=== PATIENT | male | born 1960 | race Caucasian/White ===

== ENCOUNTER 2020-07-30 13:08 | Inpatient (IN) | payer MEDICAID, OTHER ==
[~2020-07-30] VITALS: Ht 177.8 cm; Wt 77.1 kg
[2020-07-30 15:08] LABS: MEAN CORPUSCULAR HGB CONC 30.9 g/dL (33.2-36.2); MEAN PLATELET VOLUME 8.1 fL (7.4-10.4); PLATELET COUNT 229 x10^3/uL (130-400); RED BLOOD COUNT 4.01 x10^6/uL (4.38-5.82); RED CELL DISTRIBUTION WIDTH 16.3 % (9.4-14.8)
[2020-07-30 15:15] LABS: ALANINE AMINOTRANSFERASE 17 U/L (12-78); ALBUMIN 2.4 g/dL (3.4-5.0); ANION GAP 3 mmol/L (5-15); CALCIUM 8.2 mg/dL (8.5-10.1); CHLORIDE 104 mmol/L (98-107); CREATININE 1.18 mg/dL (0.7-1.3)
--- NOTE | 2020-07-30 15:15 | NUR ---
Joe patton in [facility] - 07/30/20 at 1540 by ERIC WATER MAINTENANCE SUPERVISOR: PT TO ROOM VIA WHEELCHAIR AT THIS TIME
[2020-07-30 15:20] LABS: ALKALINE PHOSPHATASE 115 U/L (45-117); BILIRUBIN,TOTAL 0.3 mg/dL (0.2-1.0)
--- NOTE | 2020-07-30 15:41 | NUR ---
WIRE BOUND BOX MACHINE HELPER: PT TO ROOM VIA WHEELCHAIR AT THIS TIME
[2020-07-30 15:46] LABS: MD YES
[2020-07-30 15:48] LABS: <PLATELET ESTIMATE> ADEQUATE; LYMPH#(MANUAL) 0.75 x10^3/uL (1-3.4); LYMPHS% (MANUAL) 10 % (22-44); MONOS#(MANUAL) 0.08 x10^3/uL (0.3-2.7); MONOS% (MANUAL) 1 % (2-9); SEG#(MANUAL) 6.68 x10^3/uL (1.8-6.8); SEGS% (MANUAL) 89 % (42-75)
[2020-07-30 15:49] LABS: <PLT MORPHOLOGY> NORMAL PLT MORPH; ANISOCYTOSIS 1+; MICROCYTOSIS 1+
[2020-07-30 15:50] LABS: HYPOCHROMIA 1+
--- NOTE | 2020-07-30 15:50 | NUR ---
REYNA RN: PT HELPED TO THE BED. PT REFUSING TO LAY FLAT AND PUT A GOWN. PRIMARY RN, GARDENIA WEBB.
[2020-07-30 15:52] LABS: STOMATOCYTES 1+
--- NOTE | 2020-07-30 16:12 | NUR ---
PT TO RADIOLOGY
--- NOTE | 2020-07-30 16:45 | NUR ---
DR MENDOZA AT BEDSIDE TO EVAL PT Addendum: 07/30/20 at 1717 by SCOTT C-COLLAR REMOVED BY DR MENDOZA.
[2020-07-30] MEDS ORDERED: FUROSEMIDE 40 MG/4 ML IV ONE (17:00)
--- NOTE | 2020-07-30 17:25 | NUR ---
PT IS POOR HISTORIAN, HARD TO FOCUS. UNABLE TO GET MED REC AND COMPLETE HISTORY.
[2020-07-30] MEDS ORDERED: FUROSEMIDE 40 MG/4 ML ONE (18:02)
[2020-07-30] MEDS: AMPICILLIN/SULBACTAM 3 GM in SODIUM CHLORIDE 0.9% 100 ML IV ONE ×2 (18:08→18:26)
--- NOTE | 2020-07-30 18:09 | NUR ---
IV abx not hung, blood cultures not drawn, logged in computer, no pink armband on pt. pt refused lamas cath, Deshawn JOSEPH ([facility]) notified. pt used urinal, 500mls output.
--- NOTE | 2020-07-30 18:22 | NUR ---
REPORT GIVEN TO JUANA TORRES
[2020-07-30] MEDS ORDERED: VANCOMYCIN PER PHARMACY MC PRN (18:30)
[2020-07-30] MEDS ORDERED: POLYETHYLENE GLYCOL 17 GM PACKET PO PRN (18:30)
[2020-07-30] MEDS ORDERED: ONDANSETRON ODT 4 MG PO PRN (18:30)
[2020-07-30] MEDS ORDERED: BISACODYL 10 MG SUPP PR PRN (18:30)
[2020-07-30 18:52] LABS: HCT (SEDRATE) 33.7 % (39.2-51.8)
[2020-07-30] MEDS ORDERED: PHARMACOKINETIC MONITORING MC PRN (19:30)
[2020-07-30] MEDS ORDERED: PHARMACOKINETIC CONSULTATION MC ONE (19:30)
[2020-07-30 20:00] VITALS: BP 150/82
[2020-07-30] MEDS ORDERED: VANCOMYCIN 2,400 MG in SODIUM CHLORIDE 0.9% 500 ML IV ONE (20:00)
[2020-07-30] MEDS: SODIUM CHLORIDE FLUSH 10ML SYR IVF SCH (20:36)
[2020-07-30] MEDS: HEPARIN 5,000 UNITS/ML, 1ML SQ SCH (20:36)
[2020-07-30] MEDS: morphine SULFATE 10 MG/ML, 1ML IVPush PRN (20:58)
[2020-07-30] MEDS: INSULIN LISPRO 100 UNITS/ML, PEN SQ-INSULIN SCH (22:19)
[2020-07-31] MEDS: AMPICILLIN/SULBACTAM 3 GM in SODIUM CHLORIDE 0.9% 100 ML IV SCH ×4 (00:49→18:30)
[2020-07-31 01:01] VITALS: BP 140/79
[2020-07-31] MEDS: HEPARIN 5,000 UNITS/ML, 1ML SQ SCH ×3 (04:30→20:44)
[2020-07-31 05:44] LABS: BASOPHILS % (AUTO) 0 % (0-1); EOSINOPHILS % (AUTO) 1 % (1-7); LYMPHOCYTES % (AUTO) 9 % (22-44); MEAN CORPUSCULAR HEMOGLOBIN 26.4 pg (27.5-34.5); MEAN CORPUSCULAR HGB CONC 31.8 g/dL (33.2-36.2); MONOCYTES % (AUTO) 4 % (2-9); NEUTROPHILS % (AUTO) 86 % (42-75); PLATELET COUNT 197 x10^3/uL (130-400); RED BLOOD COUNT 3.51 x10^6/uL (4.38-5.82); RED CELL DISTRIBUTION WIDTH 16.2 % (9.4-14.8)
[2020-07-31 05:56] LABS: ANION GAP 5 mmol/L (5-15); CALCIUM 7.7 mg/dL (8.5-10.1); CHLORIDE 105 mmol/L (98-107); CREATININE 1.07 mg/dL (0.7-1.3)
[2020-07-31 07:19] LABS: MD NO
[2020-07-31] MEDS: INSULIN LISPRO 100 UNITS/ML, PEN SQ-INSULIN SCH ×4 (07:25→20:43)
[2020-07-31] MEDS: FUROSEMIDE 40 MG/4 ML IV SCH ×2 (07:28→18:30)
[2020-07-31] MEDS ORDERED: VANCOMYCIN 2,000 MG in SODIUM CHLORIDE 0.9% 500 ML IV SCH ×2 (08:00→14:30)
[2020-07-31 08:25] VITALS: BP 102/70
[2020-07-31] MEDS: SODIUM CHLORIDE FLUSH 10ML SYR IVF SCH ×2 (09:36→20:44)
[2020-07-31] MEDS: SENNA/DOCUSATE TABLET PO SCH (09:36)
[2020-07-31] MEDS: METHADONE 10 MG TABLET PO SCH (09:39)
[2020-07-31] MEDS: INSULIN GLARGINE 100 UNITS/ML, PEN SQ-INSULIN SCH (10:35)
[2020-07-31] MEDS ORDERED: GADOTERATE 10 MMOL/20ML SYR ONE (11:29)
[2020-07-31] MEDS ORDERED: DEXTROSE 4 GM TAB.CHEW PO PRN (12:30)
[2020-07-31] MEDS ORDERED: DEXTROSE 50%, 50ML SYRINGE IVPush PRN (12:30)
[2020-07-31] MEDS: CHOLECALCIFEROL 5,000u TAB PO SCH (12:30)
[2020-07-31] MEDS ORDERED: GLUCAGON 1 MG IM PRN (12:30)
[2020-07-31] MEDS: ZINC SULFATE 220 MG CAPSULE PO SCH (12:32)
[2020-07-31 15:59] VITALS: BP 113/83
[2020-07-31 20:20] VITALS: BP 110/71
[2020-07-31] MEDS: ASCORBIC ACID 250 MG TAB PO SCH (20:44)
[2020-07-31] MEDS ORDERED: LORazepam 0.5MG TABLET ONE (22:54)
[2020-07-31] MEDS ORDERED: LORazepam 0.5MG TABLET PO ONE (23:00)
[2020-08-01] MEDS: AMPICILLIN/SULBACTAM 3 GM in SODIUM CHLORIDE 0.9% 100 ML IV SCH ×3 (00:30→12:30)
[2020-08-01 02:21] LABS: AMPHETAMINE SCREEN, URINE Positive (Negative); BARBITURATE SCREEN, URINE Negative (Negative); BENZODIAZEPINE SCREEN, URINE Negative (Negative); CANNABINOID SCREEN, URINE Negative (Negative); COCAINE SCREEN, URINE Negative (Negative); METHADONE SCREEN, URINE Positive (Negative); OPIATE SCREEN, URINE Positive (Negative)
[2020-08-01] MEDS: HEPARIN 5,000 UNITS/ML, 1ML SQ SCH ×3 (03:44→20:19)
[2020-08-01] MEDS: FUROSEMIDE 40 MG/4 ML IV SCH ×4 (05:09→20:19)
[2020-08-01 07:57] LABS: BASOPHILS % (AUTO) 1 % (0-1); EOSINOPHILS % (AUTO) 1 % (1-7); LYMPHOCYTES % (AUTO) 9 % (22-44); MEAN CORPUSCULAR HEMOGLOBIN 26.4 pg (27.5-34.5); MEAN CORPUSCULAR HGB CONC 31.8 g/dL (33.2-36.2); MEAN PLATELET VOLUME 7.8 fL (7.4-10.4); MONOCYTES % (AUTO) 8 % (2-9); NEUTROPHILS % (AUTO) 82 % (42-75); PLATELET COUNT 183 x10^3/uL (130-400); RED BLOOD COUNT 3.51 x10^6/uL (4.38-5.82); RED CELL DISTRIBUTION WIDTH 16.1 % (9.4-14.8)
[2020-08-01 08:02] LABS: ALBUMIN 2.2 g/dL (3.4-5.0); ANION GAP 5 mmol/L (5-15); CALCIUM 8.1 mg/dL (8.5-10.1); CHLORIDE 104 mmol/L (98-107)
[2020-08-01 08:10] LABS: ALANINE AMINOTRANSFERASE 21 U/L (12-78); ALKALINE PHOSPHATASE 208 U/L (45-117); BILIRUBIN,TOTAL 0.4 mg/dL (0.2-1.0); CREATININE 1.07 mg/dL (0.7-1.3); TOTAL PROTEIN 7.4 g/dL (6.4-8.2)
[2020-08-01 08:15] LABS: MD NO
[2020-08-01 08:27] VITALS: BP 118/82
[2020-08-01] MEDS: SODIUM CHLORIDE FLUSH 10ML SYR IVF SCH ×2 (08:30→20:20)
[2020-08-01] MEDS: ZINC SULFATE 220 MG CAPSULE PO SCH (08:31)
[2020-08-01] MEDS: ASCORBIC ACID 250 MG TAB PO SCH ×2 (08:31→20:21)
[2020-08-01] MEDS: SENNA/DOCUSATE TABLET PO SCH (08:31)
[2020-08-01] MEDS: METHADONE 10 MG TABLET PO SCH (08:31)
[2020-08-01] MEDS: CHOLECALCIFEROL 5,000u TAB PO SCH (08:31)
[2020-08-01] MEDS: INSULIN LISPRO 100 UNITS/ML, PEN SQ-INSULIN SCH ×4 (08:34→21:00)
[2020-08-01] MEDS: INSULIN GLARGINE 100 UNITS/ML, PEN SQ-INSULIN SCH (08:35)
[2020-08-01] MEDS: VANCOMYCIN 2,000 MG in SODIUM CHLORIDE 0.9% 500 ML IV SCH (08:41)
[2020-08-01 12:21] VITALS: BP 118/72
[2020-08-01] MEDS: LISINOPRIL 5 MG TABLET PO SCH (12:29)
[2020-08-01] MEDS: CARVEDILOL 3.125 MG TABLET PO SCH ×3 (12:29→20:23)
[2020-08-01 13:24] LABS: HCT (SEDRATE) 29.2 % (39.2-51.8)
[2020-08-01] MEDS ORDERED: LIDOCAINE 1%, 10ML ONE ×2 (14:39→15:31)
[2020-08-01] MEDS ORDERED: GADOTERATE 10 MMOL/20ML SYR ONE (15:13)
[2020-08-01] MEDS: SPIRONOLACTONE 25 MG TABLET PO SCH (16:00)
[2020-08-01 18:00] VITALS: BP 103/74
[2020-08-01] MEDS: PIPERACILLIN/TAZO/PMX 3.375GM 50 ML IV SCH ×3 (18:12→20:22)
[2020-08-01 20:20] VITALS: BP 101/66
[2020-08-02 02:33] LABS: BASOPHILS % (AUTO) 0 % (0-1); EOSINOPHILS % (AUTO) 2 % (1-7); LYMPHOCYTES % (AUTO) 14 % (22-44); MEAN CORPUSCULAR HEMOGLOBIN 25.8 pg (27.5-34.5); MEAN CORPUSCULAR HGB CONC 31.4 g/dL (33.2-36.2); MONOCYTES % (AUTO) 7 % (2-9); NEUTROPHILS % (AUTO) 77 % (42-75); PLATELET COUNT 192 x10^3/uL (130-400); RED BLOOD COUNT 3.46 x10^6/uL (4.38-5.82); RED CELL DISTRIBUTION WIDTH 16.5 % (9.4-14.8)
[2020-08-02 02:35] LABS: MD NO
[2020-08-02] MEDS: VANCOMYCIN 2,000 MG in SODIUM CHLORIDE 0.9% 500 ML IV SCH (02:36)
[2020-08-02 02:38] LABS: ALANINE AMINOTRANSFERASE 17 U/L (12-78); ANION GAP 5 mmol/L (5-15); CHLORIDE 105 mmol/L (98-107); CREATININE 1.03 mg/dL (0.7-1.3)
[2020-08-02 02:40] LABS: ALKALINE PHOSPHATASE 164 U/L (45-117); BILIRUBIN,TOTAL 0.3 mg/dL (0.2-1.0); TOTAL PROTEIN 6.9 g/dL (6.4-8.2)
[2020-08-02 02:45] VITALS: BP 116/70
[2020-08-02 04:05] VITALS: BP 101/66
[2020-08-02] MEDS: PIPERACILLIN/TAZO/PMX 3.375GM 50 ML IV SCH ×5 (04:30→22:35)
[2020-08-02] MEDS: HEPARIN 5,000 UNITS/ML, 1ML SQ SCH ×3 (04:48→22:36)
[2020-08-02] MEDS: CARVEDILOL 3.125 MG TABLET PO SCH ×2 (06:00→09:09)
[2020-08-02 06:38] VITALS: BP 121/78
[2020-08-02] MEDS ORDERED: METHADONE 5 MG TABLET ONE (08:33)
[2020-08-02] MEDS: METHADONE 10 MG TABLET PO SCH (08:48)
[2020-08-02] MEDS: INSULIN LISPRO 100 UNITS/ML, PEN SQ-INSULIN SCH ×4 (09:08→21:55)
[2020-08-02] MEDS: ASCORBIC ACID 250 MG TAB PO SCH ×2 (09:12→22:36)
[2020-08-02] MEDS: ZINC SULFATE 220 MG CAPSULE PO SCH (09:12)
[2020-08-02] MEDS: FUROSEMIDE 40 MG/4 ML IV SCH ×2 (09:12→17:46)
[2020-08-02] MEDS: CHOLECALCIFEROL 5,000u TAB PO SCH (09:13)
[2020-08-02] MEDS: LISINOPRIL 5 MG TABLET PO SCH (09:13)
[2020-08-02] MEDS: SENNA/DOCUSATE TABLET PO SCH (09:14)
[2020-08-02] MEDS: SPIRONOLACTONE 25 MG TABLET PO SCH (09:14)
[2020-08-02] MEDS: INSULIN GLARGINE 100 UNITS/ML, PEN SQ-INSULIN SCH (09:16)
[2020-08-02] MEDS: SODIUM CHLORIDE FLUSH 10ML SYR IVF SCH ×2 (09:16→21:53)
[2020-08-02 14:19] VITALS: BP 96/67
[2020-08-02 21:30] VITALS: BP 109/73
[2020-08-03] VITALS (7 sets, daily range): BP systolic 95–148; BP diastolic 57–84
[2020-08-03] MEDS ORDERED: LORazepam 1MG TABLET PO ONE (01:00)
[2020-08-03] MEDS ORDERED: VANCOMYCIN 2,000 MG in SODIUM CHLORIDE 0.9% 500 ML IV SCH (02:00)
[2020-08-03] MEDS: PIPERACILLIN/TAZO/PMX 3.375GM 50 ML IV SCH ×4 (04:34→23:10)
[2020-08-03] MEDS: HEPARIN 5,000 UNITS/ML, 1ML SQ SCH ×3 (04:35→20:18)
[2020-08-03 05:48] LABS: BASOPHILS % (AUTO) 0 % (0-1); EOSINOPHILS % (AUTO) 2 % (1-7); LYMPHOCYTES % (AUTO) 18 % (22-44); MEAN CORPUSCULAR HEMOGLOBIN 26.3 pg (27.5-34.5); MEAN PLATELET VOLUME 7.9 fL (7.4-10.4); MONOCYTES % (AUTO) 12 % (2-9); NEUTROPHILS % (AUTO) 68 % (42-75); PLATELET COUNT 201 x10^3/uL (130-400); RED CELL DISTRIBUTION WIDTH 16.3 % (9.4-14.8)
[2020-08-03 05:53] LABS: MD NO
[2020-08-03] MEDS: CARVEDILOL 3.125 MG TABLET PO SCH ×2 (05:55→16:54)
[2020-08-03 06:04] LABS: CHLORIDE 104 mmol/L (98-107)
[2020-08-03 06:08] LABS: ANION GAP 3 mmol/L (5-15); CALCIUM 7.7 mg/dL (8.5-10.1)
[2020-08-03] MEDS: METHADONE 10 MG TABLET PO SCH (07:50)
[2020-08-03] MEDS: FUROSEMIDE 40 MG/4 ML IV SCH ×2 (08:50→16:54)
[2020-08-03] MEDS: SPIRONOLACTONE 25 MG TABLET PO SCH (08:50)
[2020-08-03] MEDS: SENNA/DOCUSATE TABLET PO SCH (08:55)
[2020-08-03] MEDS: ASCORBIC ACID 250 MG TAB PO SCH ×2 (08:55→20:18)
[2020-08-03] MEDS: CHOLECALCIFEROL 5,000u TAB PO SCH (08:55)
[2020-08-03] MEDS: ZINC SULFATE 220 MG CAPSULE PO SCH (08:55)
[2020-08-03] MEDS: LISINOPRIL 5 MG TABLET PO SCH (08:55)
[2020-08-03] MEDS: INSULIN LISPRO 100 UNITS/ML, PEN SQ-INSULIN SCH ×4 (09:00→20:26)
[2020-08-03] MEDS: SODIUM CHLORIDE FLUSH 10ML SYR IVF SCH ×2 (09:01→20:18)
[2020-08-03] MEDS: INSULIN GLARGINE 100 UNITS/ML, PEN SQ-INSULIN SCH (10:19)
[2020-08-04] MEDS: HEPARIN 5,000 UNITS/ML, 1ML SQ SCH ×3 (03:30→19:54)
[2020-08-04] MEDS: PIPERACILLIN/TAZO/PMX 3.375GM 50 ML IV SCH ×3 (05:07→17:17)
[2020-08-04] MEDS: CARVEDILOL 3.125 MG TABLET PO SCH ×2 (05:55→17:17)
[2020-08-04 05:59] LABS: BASOPHILS % (AUTO) 1 % (0-1); EOSINOPHILS % (AUTO) 2 % (1-7); LYMPHOCYTES % (AUTO) 21 % (22-44); MEAN CORPUSCULAR HEMOGLOBIN 25.9 pg (27.5-34.5); MEAN CORPUSCULAR HGB CONC 31.2 g/dL (33.2-36.2); MEAN PLATELET VOLUME 7.9 fL (7.4-10.4); MONOCYTES % (AUTO) 11 % (2-9); NEUTROPHILS % (AUTO) 65 % (42-75); PLATELET COUNT 247 x10^3/uL (130-400); RED BLOOD COUNT 3.59 x10^6/uL (4.38-5.82); RED CELL DISTRIBUTION WIDTH 16.4 % (9.4-14.8)
[2020-08-04 06:00] LABS: MD NO
[2020-08-04 06:15] LABS: CALCIUM 7.7 mg/dL (8.5-10.1); CHLORIDE 100 mmol/L (98-107)
[2020-08-04 06:19] LABS: ANION GAP 3 mmol/L (5-15); CREATININE 0.95 mg/dL (0.7-1.3)
[2020-08-04 07:10] VITALS: BP 106/67
[2020-08-04] MEDS: INSULIN LISPRO 100 UNITS/ML, PEN SQ-INSULIN SCH ×4 (07:44→21:33)
[2020-08-04] MEDS: INSULIN GLARGINE 100 UNITS/ML, PEN SQ-INSULIN SCH (07:45)
[2020-08-04] MEDS: FUROSEMIDE 40 MG/4 ML IV SCH ×2 (07:45→17:17)
[2020-08-04] MEDS: METHADONE 10 MG TABLET PO SCH (07:45)
[2020-08-04] MEDS: SPIRONOLACTONE 25 MG TABLET PO SCH (07:46)
[2020-08-04] MEDS: ZINC SULFATE 220 MG CAPSULE PO SCH (07:46)
[2020-08-04] MEDS: ASCORBIC ACID 250 MG TAB PO SCH ×2 (07:46→21:32)
[2020-08-04] MEDS: CHOLECALCIFEROL 5,000u TAB PO SCH (07:46)
[2020-08-04] MEDS: LISINOPRIL 5 MG TABLET PO SCH (07:46)
[2020-08-04] MEDS: SODIUM CHLORIDE FLUSH 10ML SYR IVF SCH ×2 (07:48→19:57)
[2020-08-04] MEDS: SENNA/DOCUSATE TABLET PO SCH (07:51)
[2020-08-04 08:11] LABS: CHOL/HDL RATIO 3.3; LDL/HDL RATIO 1.8 (0.5-3.0)
[2020-08-04 13:14] VITALS: BP 117/80
[2020-08-04 18:35] VITALS: BP 112/77
[2020-08-04] MEDS ORDERED: INSULIN LISPRO 100 UNIT/ML, 3ML VIAL SQ-INSULIN ONE (20:00)
[2020-08-04 22:53] LABS: PH, VENOUS 7.429 pH (7.320-7.420)
[2020-08-04 23:03] LABS: ANION GAP 1 mmol/L (5-15); CALCIUM 7.6 mg/dL (8.5-10.1); CHLORIDE 98 mmol/L (98-107); CREATININE 1.12 mg/dL (0.7-1.3)
[2020-08-04 23:31] LABS: ACETONE, SERUM Negative (Negative)
[2020-08-04] MEDS: PIPERACILLIN/TAZO 3.375 GM in SODIUM CHLORIDE 0.9% 50 ML IV SCH (23:31)
[2020-08-04 23:56] VITALS: BP 100/56
[2020-08-05] VITALS (7 sets, daily range): BP systolic 93–117; BP diastolic 58–72
[2020-08-05] MEDS: HEPARIN 5,000 UNITS/ML, 1ML SQ SCH ×3 (03:46→20:02)
[2020-08-05] MEDS: ACETAMINOPHEN 325 MG TABLET PO PRN (03:46)
[2020-08-05] MEDS: PIPERACILLIN/TAZO 3.375 GM in SODIUM CHLORIDE 0.9% 50 ML IV SCH ×4 (05:37→23:06)
[2020-08-05] MEDS: CARVEDILOL 3.125 MG TABLET PO SCH ×2 (05:38→17:23)
[2020-08-05] MEDS: morphine SULFATE 10 MG/ML, 1ML IVPush PRN ×2 (08:42→17:23)
[2020-08-05] MEDS: ASCORBIC ACID 250 MG TAB PO SCH ×2 (08:43→20:02)
[2020-08-05] MEDS: METHADONE 10 MG TABLET PO SCH (08:43)
[2020-08-05] MEDS: SENNA/DOCUSATE TABLET PO SCH (08:43)
[2020-08-05] MEDS: LISINOPRIL 5 MG TABLET PO SCH (08:44)
[2020-08-05] MEDS: CHOLECALCIFEROL 5,000u TAB PO SCH (08:44)
[2020-08-05] MEDS: SPIRONOLACTONE 25 MG TABLET PO SCH (08:44)
[2020-08-05] MEDS: FUROSEMIDE 40 MG/4 ML IV SCH ×2 (08:44→17:23)
[2020-08-05] MEDS: SODIUM CHLORIDE FLUSH 10ML SYR IVF SCH ×2 (08:45→20:05)
[2020-08-05] MEDS: INSULIN LISPRO 100 UNITS/ML, PEN SQ-INSULIN SCH ×4 (08:47→20:04)
[2020-08-05] MEDS: INSULIN GLARGINE 100 UNITS/ML, PEN SQ-INSULIN SCH (08:47)
[2020-08-05] MEDS: ZINC SULFATE 220 MG CAPSULE PO SCH (08:53)
[2020-08-05] MEDS ORDERED: INSULIN GLARGINE 100 UNITS/ML, PEN SQ-INSULIN SCH (21:00)
[2020-08-06 00:19] VITALS: BP 152/84
[2020-08-06] MEDS: morphine SULFATE 10 MG/ML, 1ML IVPush PRN ×2 (01:31→08:19)
[2020-08-06] MEDS: HEPARIN 5,000 UNITS/ML, 1ML SQ SCH ×3 (03:25→19:27)
[2020-08-06] MEDS: CARVEDILOL 3.125 MG TABLET PO SCH ×2 (05:23→17:31)
[2020-08-06] MEDS: PIPERACILLIN/TAZO 3.375 GM in SODIUM CHLORIDE 0.9% 50 ML IV SCH ×4 (05:23→20:17)
[2020-08-06 05:33] LABS: BASOPHILS % (AUTO) 2 % (0-1); EOSINOPHILS % (AUTO) 3 % (1-7); LYMPHOCYTES % (AUTO) 26 % (22-44); MEAN CORPUSCULAR HEMOGLOBIN 25.8 pg (27.5-34.5); MEAN CORPUSCULAR HGB CONC 31.4 g/dL (33.2-36.2); MEAN PLATELET VOLUME 7.6 fL (7.4-10.4); MONOCYTES % (AUTO) 10 % (2-9); NEUTROPHILS % (AUTO) 60 % (42-75); PLATELET COUNT 251 x10^3/uL (130-400); RED CELL DISTRIBUTION WIDTH 16.3 % (9.4-14.8)
[2020-08-06 05:39] LABS: MD NO
[2020-08-06 05:47] LABS: CHLORIDE 98 mmol/L (98-107)
[2020-08-06 06:11] LABS: ANION GAP 4 mmol/L (5-15); CALCIUM 7.8 mg/dL (8.5-10.1)
[2020-08-06 08:11] VITALS: BP 105/67
[2020-08-06] MEDS: INSULIN LISPRO 100 UNITS/ML, PEN SQ-INSULIN SCH ×4 (08:16→20:08)
[2020-08-06] MEDS: INSULIN GLARGINE 100 UNITS/ML, PEN SQ-INSULIN SCH ×2 (08:17→20:09)
[2020-08-06] MEDS: SENNA/DOCUSATE TABLET PO SCH (08:20)
[2020-08-06] MEDS: CHOLECALCIFEROL 5,000u TAB PO SCH (08:20)
[2020-08-06] MEDS: FUROSEMIDE 40 MG/4 ML IV SCH ×2 (08:20→17:32)
[2020-08-06] MEDS: ASCORBIC ACID 250 MG TAB PO SCH ×2 (08:20→19:27)
[2020-08-06] MEDS: SODIUM CHLORIDE FLUSH 10ML SYR IVF SCH ×2 (08:21→20:10)
[2020-08-06] MEDS: SPIRONOLACTONE 25 MG TABLET PO SCH (08:21)
[2020-08-06] MEDS: LISINOPRIL 5 MG TABLET PO SCH (08:21)
[2020-08-06] MEDS: ZINC SULFATE 220 MG CAPSULE PO SCH (08:22)
[2020-08-06] MEDS: METHADONE 10 MG TABLET PO SCH (09:25)
[2020-08-06 12:02] VITALS: BP 110/68
[2020-08-06 19:07] VITALS: BP 105/61
[2020-08-06] MEDS: ACETAMINOPHEN 325 MG TABLET PO PRN (19:27)
[2020-08-07 00:25] VITALS: BP 121/79
[2020-08-07] MEDS: morphine SULFATE 10 MG/ML, 1ML IVPush PRN ×4 (00:36→22:58)
[2020-08-07] MEDS: PIPERACILLIN/TAZO 3.375 GM in SODIUM CHLORIDE 0.9% 50 ML IV SCH ×5 (02:47→23:45)
[2020-08-07] MEDS: HEPARIN 5,000 UNITS/ML, 1ML SQ SCH ×3 (04:24→20:27)
[2020-08-07 06:30] VITALS: BP 116/76
[2020-08-07] MEDS: CARVEDILOL 3.125 MG TABLET PO SCH ×2 (07:35→18:13)
[2020-08-07] MEDS: INSULIN LISPRO 100 UNITS/ML, PEN SQ-INSULIN SCH ×4 (07:45→21:00)
[2020-08-07] MEDS: FUROSEMIDE 40 MG/4 ML IV SCH ×2 (07:47→18:13)
[2020-08-07] MEDS: LISINOPRIL 5 MG TABLET PO SCH (09:38)
[2020-08-07] MEDS: ASCORBIC ACID 250 MG TAB PO SCH ×2 (09:39→21:57)
[2020-08-07] MEDS: ZINC SULFATE 220 MG CAPSULE PO SCH (09:39)
[2020-08-07] MEDS: SENNA/DOCUSATE TABLET PO SCH (09:40)
[2020-08-07] MEDS: CHOLECALCIFEROL 5,000u TAB PO SCH (09:40)
[2020-08-07] MEDS: METHADONE 10 MG TABLET PO SCH (09:40)
[2020-08-07] MEDS: SPIRONOLACTONE 25 MG TABLET PO SCH (09:41)
[2020-08-07] MEDS: SODIUM CHLORIDE FLUSH 10ML SYR IVF SCH ×2 (09:41→21:57)
[2020-08-07] MEDS: INSULIN GLARGINE 100 UNITS/ML, PEN SQ-INSULIN SCH ×2 (09:44→21:58)
[2020-08-07 14:23] VITALS: BP 110/69
[2020-08-07 18:38] VITALS: BP 112/70
[2020-08-08] MEDS: PIPERACILLIN/TAZO 3.375 GM in DEXTROSE 5% 50 ML IV SCH ×4 (00:15→17:09)
[2020-08-08] MEDS ORDERED: PIPERACILLIN/TAZO/PMX 3.375GM 50 ML IV SCH (02:15)
[2020-08-08 02:20] VITALS: BP 115/74
[2020-08-08] MEDS: HEPARIN 5,000 UNITS/ML, 1ML SQ SCH ×3 (05:31→21:37)
[2020-08-08] MEDS: morphine SULFATE 10 MG/ML, 1ML IVPush PRN ×4 (05:58→23:13)
[2020-08-08 06:00] VITALS: BP 133/86
[2020-08-08] MEDS: CARVEDILOL 3.125 MG TABLET PO SCH ×2 (06:01→17:09)
[2020-08-08] MEDS: INSULIN LISPRO 100 UNITS/ML, PEN SQ-INSULIN SCH ×4 (07:00→21:38)
[2020-08-08] MEDS: INSULIN GLARGINE 100 UNITS/ML, PEN SQ-INSULIN SCH ×2 (08:24→21:39)
[2020-08-08 08:27] LABS: BASOPHILS % (AUTO) 1 % (0-1); EOSINOPHILS % (AUTO) 1 % (1-7); LYMPHOCYTES % (AUTO) 20 % (22-44); MEAN CORPUSCULAR HEMOGLOBIN 25.6 pg (27.5-34.5); MEAN CORPUSCULAR HGB CONC 31.3 g/dL (33.2-36.2); MEAN PLATELET VOLUME 7.3 fL (7.4-10.4); MONOCYTES % (AUTO) 9 % (2-9); NEUTROPHILS % (AUTO) 68 % (42-75); PLATELET COUNT 271 x10^3/uL (130-400); RED BLOOD COUNT 4.25 x10^6/uL (4.38-5.82); RED CELL DISTRIBUTION WIDTH 16.4 % (9.4-14.8)
[2020-08-08 08:30] LABS: MD NO
[2020-08-08] MEDS ORDERED: INSULIN GLARGINE 100 UNITS/ML, PEN SQ-INSULIN ONE (08:30)
[2020-08-08] MEDS: FUROSEMIDE 40 MG/4 ML IV SCH (08:33)
[2020-08-08] MEDS: SODIUM CHLORIDE FLUSH 10ML SYR IVF SCH ×2 (08:34→21:39)
[2020-08-08] MEDS: METHADONE 10 MG TABLET PO SCH (08:34)
[2020-08-08] MEDS: SENNA/DOCUSATE TABLET PO SCH (08:34)
[2020-08-08] MEDS: ASCORBIC ACID 250 MG TAB PO SCH ×2 (08:34→21:37)
[2020-08-08 08:35] LABS: ANION GAP 1 mmol/L (5-15); CALCIUM 8.3 mg/dL (8.5-10.1); CHLORIDE 95 mmol/L (98-107); CREATININE 1.01 mg/dL (0.7-1.3)
[2020-08-08] MEDS: LISINOPRIL 5 MG TABLET PO SCH (08:35)
[2020-08-08] MEDS: SPIRONOLACTONE 25 MG TABLET PO SCH (08:35)
[2020-08-08] MEDS: ZINC SULFATE 220 MG CAPSULE PO SCH (08:35)
[2020-08-08] MEDS: CHOLECALCIFEROL 5,000u TAB PO SCH (08:35)
[2020-08-08 12:44] VITALS: BP 144/93
[2020-08-08 20:29] VITALS: BP 121/80
[2020-08-09] MEDS: PIPERACILLIN/TAZO 3.375 GM in DEXTROSE 5% 50 ML IV SCH ×4 (00:04→17:54)
[2020-08-09 00:09] VITALS: BP 106/67
[2020-08-09] MEDS: HEPARIN 5,000 UNITS/ML, 1ML SQ SCH ×3 (04:08→20:53)
[2020-08-09] MEDS: morphine SULFATE 10 MG/ML, 1ML IVPush PRN ×3 (04:08→21:48)
[2020-08-09 05:46] VITALS: BP 117/82
[2020-08-09] MEDS: CARVEDILOL 3.125 MG TABLET PO SCH ×2 (06:00→17:39)
[2020-08-09 06:21] VITALS: BP 115/78
[2020-08-09] MEDS: INSULIN LISPRO 100 UNITS/ML, PEN SQ-INSULIN SCH ×4 (07:00→21:06)
[2020-08-09] MEDS: SPIRONOLACTONE 25 MG TABLET PO SCH (09:00)
[2020-08-09] MEDS: LISINOPRIL 5 MG TABLET PO SCH (09:00)
[2020-08-09] MEDS: SODIUM CHLORIDE FLUSH 10ML SYR IVF SCH ×2 (09:00→20:53)
[2020-08-09] MEDS: METHADONE 10 MG TABLET PO SCH (09:08)
[2020-08-09] MEDS: ASCORBIC ACID 250 MG TAB PO SCH ×2 (09:09→20:55)
[2020-08-09] MEDS: SENNA/DOCUSATE TABLET PO SCH (09:09)
[2020-08-09] MEDS: CHOLECALCIFEROL 5,000u TAB PO SCH (09:09)
[2020-08-09] MEDS: ZINC SULFATE 220 MG CAPSULE PO SCH (09:09)
[2020-08-09] MEDS: FUROSEMIDE 40 MG TABLET PO SCH (09:09)
[2020-08-09] MEDS: INSULIN GLARGINE 100 UNITS/ML, PEN SQ-INSULIN SCH ×2 (09:11→21:07)
[2020-08-09 12:48] VITALS: BP 125/78
[2020-08-09 19:19] VITALS: BP 129/86
[2020-08-10] MEDS: PIPERACILLIN/TAZO 3.375 GM in DEXTROSE 5% 50 ML IV SCH ×5 (00:20→23:41)
[2020-08-10 01:15] VITALS: BP 116/76
[2020-08-10] MEDS: HEPARIN 5,000 UNITS/ML, 1ML SQ SCH ×3 (04:01→21:35)
[2020-08-10] MEDS: CARVEDILOL 3.125 MG TABLET PO SCH ×2 (06:00→17:40)
[2020-08-10 06:09] LABS: HCT (SEDRATE) 29.7 % (39.2-51.8)
[2020-08-10 06:12] LABS: BASOPHILS % (AUTO) 1 % (0-1); EOSINOPHILS % (AUTO) 3 % (1-7); LYMPHOCYTES % (AUTO) 33 % (22-44); MEAN CORPUSCULAR HEMOGLOBIN 25.6 pg (27.5-34.5); MEAN CORPUSCULAR HGB CONC 31.6 g/dL (33.2-36.2); MONOCYTES % (AUTO) 10 % (2-9); NEUTROPHILS % (AUTO) 53 % (42-75); PLATELET COUNT 327 x10^3/uL (130-400); RED CELL DISTRIBUTION WIDTH 16.7 % (9.4-14.8)
[2020-08-10 06:14] LABS: MD NO
[2020-08-10 06:19] LABS: ANION GAP 2 mmol/L (5-15); CALCIUM 8.5 mg/dL (8.5-10.1); CHLORIDE 99 mmol/L (98-107); CREATININE 0.93 mg/dL (0.7-1.3)
[2020-08-10] MEDS: morphine SULFATE 10 MG/ML, 1ML IVPush PRN ×3 (06:20→21:36)
[2020-08-10 06:42] VITALS: BP 111/66
[2020-08-10] MEDS: INSULIN LISPRO 100 UNITS/ML, PEN SQ-INSULIN SCH ×4 (07:00→21:44)
[2020-08-10] MEDS: ZINC SULFATE 220 MG CAPSULE PO SCH (08:42)
[2020-08-10] MEDS: SENNA/DOCUSATE TABLET PO SCH (08:42)
[2020-08-10] MEDS: METHADONE 10 MG TABLET PO SCH (08:42)
[2020-08-10] MEDS: FUROSEMIDE 40 MG TABLET PO SCH (08:43)
[2020-08-10] MEDS: CHOLECALCIFEROL 5,000u TAB PO SCH (08:43)
[2020-08-10] MEDS: ASCORBIC ACID 250 MG TAB PO SCH ×2 (08:43→21:35)
[2020-08-10] MEDS: SPIRONOLACTONE 25 MG TABLET PO SCH (08:43)
[2020-08-10] MEDS ORDERED: INSULIN GLARGINE 100 UNITS/ML, PEN SQ-INSULIN SCH (09:00)
[2020-08-10] MEDS: LISINOPRIL 5 MG TABLET PO SCH (09:00)
[2020-08-10] MEDS: SODIUM CHLORIDE FLUSH 10ML SYR IVF SCH ×2 (09:00→21:35)
[2020-08-10 12:22] VITALS: BP 122/78
[2020-08-10 20:00] VITALS: BP 117/74
[2020-08-10] MEDS: INSULIN GLARGINE 100 UNITS/ML, PEN SQ-INSULIN SCH (21:36)
[2020-08-11] MEDS: morphine SULFATE 10 MG/ML, 1ML IVPush PRN ×4 (00:53→19:46)
[2020-08-11 00:58] VITALS: BP 118/83
[2020-08-11] MEDS: PIPERACILLIN/TAZO 3.375 GM in DEXTROSE 5% 50 ML IV SCH ×3 (05:31→17:51)
[2020-08-11] MEDS: HEPARIN 5,000 UNITS/ML, 1ML SQ SCH ×3 (05:32→21:34)
[2020-08-11] MEDS: CARVEDILOL 3.125 MG TABLET PO SCH ×2 (05:36→17:52)
[2020-08-11] MEDS: INSULIN LISPRO 100 UNITS/ML, PEN SQ-INSULIN SCH ×4 (07:00→20:16)
[2020-08-11 07:09] VITALS: BP 105/75
[2020-08-11] MEDS: SODIUM CHLORIDE FLUSH 10ML SYR IVF SCH ×2 (08:03→20:18)
[2020-08-11] MEDS: CHOLECALCIFEROL 5,000u TAB PO SCH (08:03)
[2020-08-11] MEDS: ZINC SULFATE 220 MG CAPSULE PO SCH (08:04)
[2020-08-11] MEDS: METHADONE 10 MG TABLET PO SCH (08:04)
[2020-08-11] MEDS: FUROSEMIDE 40 MG TABLET PO SCH (08:04)
[2020-08-11] MEDS: SPIRONOLACTONE 25 MG TABLET PO SCH (08:05)
[2020-08-11] MEDS: SENNA/DOCUSATE TABLET PO SCH (08:05)
[2020-08-11] MEDS: ASCORBIC ACID 250 MG TAB PO SCH ×2 (08:05→20:09)
[2020-08-11] MEDS: LISINOPRIL 5 MG TABLET PO SCH (08:07)
[2020-08-11] MEDS ORDERED: INSULIN GLARGINE 100 UNITS/ML, PEN SQ-INSULIN SCH (09:00)
[2020-08-11 12:15] VITALS: BP 121/66
[2020-08-11 18:30] VITALS: BP 111/68
[2020-08-11] MEDS: INSULIN GLARGINE 100 UNITS/ML, PEN SQ-INSULIN SCH (20:16)
[2020-08-12] MEDS: PIPERACILLIN/TAZO 3.375 GM in DEXTROSE 5% 50 ML IV SCH ×4 (00:06→17:56)
[2020-08-12 00:32] VITALS: BP 112/66
[2020-08-12 05:03] LABS: BASOPHILS % (AUTO) 1 % (0-1); EOSINOPHILS % (AUTO) 2 % (1-7); LYMPHOCYTES % (AUTO) 29 % (22-44); MEAN CORPUSCULAR HEMOGLOBIN 25.4 pg (27.5-34.5); MEAN CORPUSCULAR HGB CONC 31.3 g/dL (33.2-36.2); MEAN PLATELET VOLUME 7.1 fL (7.4-10.4); MONOCYTES % (AUTO) 10 % (2-9); NEUTROPHILS % (AUTO) 58 % (42-75); PLATELET COUNT 336 x10^3/uL (130-400); RED BLOOD COUNT 3.78 x10^6/uL (4.38-5.82); RED CELL DISTRIBUTION WIDTH 16.3 % (9.4-14.8)
[2020-08-12 05:16] LABS: ANION GAP 1 mmol/L (5-15); CALCIUM 8.5 mg/dL (8.5-10.1); CHLORIDE 98 mmol/L (98-107)
[2020-08-12 05:19] LABS: CREATININE 1.17 mg/dL (0.7-1.3)
[2020-08-12] MEDS: HEPARIN 5,000 UNITS/ML, 1ML SQ SCH ×3 (05:31→21:09)
[2020-08-12] MEDS: morphine SULFATE 10 MG/ML, 1ML IVPush PRN ×3 (05:31→16:50)
[2020-08-12] MEDS: CARVEDILOL 3.125 MG TABLET PO SCH ×3 (05:32→16:54)
[2020-08-12 05:36] LABS: MD NO
[2020-08-12 06:50] VITALS: BP 103/71
[2020-08-12] MEDS: INSULIN LISPRO 100 UNITS/ML, PEN SQ-INSULIN SCH ×4 (07:00→21:10)
[2020-08-12] MEDS: SPIRONOLACTONE 25 MG TABLET PO SCH (09:00)
[2020-08-12] MEDS: SENNA/DOCUSATE TABLET PO SCH (09:00)
[2020-08-12] MEDS: LISINOPRIL 5 MG TABLET PO SCH (09:00)
[2020-08-12] MEDS: METHADONE 10 MG TABLET PO SCH (09:15)
[2020-08-12] MEDS: ASCORBIC ACID 250 MG TAB PO SCH ×2 (09:15→21:09)
[2020-08-12] MEDS: ZINC SULFATE 220 MG CAPSULE PO SCH (09:15)
[2020-08-12] MEDS: CHOLECALCIFEROL 5,000u TAB PO SCH (09:15)
[2020-08-12] MEDS: FUROSEMIDE 40 MG TABLET PO SCH (09:15)
[2020-08-12] MEDS: SODIUM CHLORIDE FLUSH 10ML SYR IVF SCH ×2 (09:16→21:00)
[2020-08-12 12:37] VITALS: BP 104/74
[2020-08-12 16:49] VITALS: BP 102/72
[2020-08-12 18:48] VITALS: BP 96/59
[2020-08-12] MEDS: INSULIN GLARGINE 100 UNITS/ML, PEN SQ-INSULIN SCH (21:12)
[2020-08-13 00:09] VITALS: BP 100/74
[2020-08-13] MEDS: PIPERACILLIN/TAZO 3.375 GM in DEXTROSE 5% 50 ML IV SCH ×4 (00:10→18:06)
[2020-08-13 00:13] VITALS: BP 117/72
[2020-08-13] MEDS: morphine SULFATE 10 MG/ML, 1ML IVPush PRN ×3 (00:22→22:18)
[2020-08-13 03:09] VITALS: BP 110/77
[2020-08-13] MEDS: HEPARIN 5,000 UNITS/ML, 1ML SQ SCH ×3 (05:15→22:05)
[2020-08-13] MEDS: CARVEDILOL 3.125 MG TABLET PO SCH ×2 (06:00→18:00)
[2020-08-13] MEDS: INSULIN LISPRO 100 UNITS/ML, PEN SQ-INSULIN SCH ×4 (07:49→22:04)
[2020-08-13] MEDS: SODIUM CHLORIDE FLUSH 10ML SYR IVF SCH ×2 (07:50→22:01)
[2020-08-13 08:34] VITALS: BP 109/69
[2020-08-13] MEDS: ZINC SULFATE 220 MG CAPSULE PO SCH (09:41)
[2020-08-13] MEDS: METHADONE 10 MG TABLET PO SCH (09:41)
[2020-08-13] MEDS: SENNA/DOCUSATE TABLET PO SCH (09:41)
[2020-08-13] MEDS: CHOLECALCIFEROL 5,000u TAB PO SCH (09:41)
[2020-08-13] MEDS: ASCORBIC ACID 250 MG TAB PO SCH ×2 (09:41→22:05)
[2020-08-13] MEDS: FUROSEMIDE 40 MG TABLET PO SCH (09:41)
[2020-08-13] MEDS: SPIRONOLACTONE 25 MG TABLET PO SCH ×2 (09:42→09:52)
[2020-08-13] MEDS: LISINOPRIL 5 MG TABLET PO SCH ×2 (09:43→09:46)
[2020-08-13 14:42] VITALS: BP 104/67
[2020-08-13 18:30] VITALS: BP 109/74
[2020-08-13] MEDS: INSULIN GLARGINE 100 UNITS/ML, PEN SQ-INSULIN SCH (22:04)
[2020-08-14] MEDS: PIPERACILLIN/TAZO 3.375 GM in DEXTROSE 5% 50 ML IV SCH ×4 (00:11→18:05)
[2020-08-14 00:32] VITALS: BP 99/64
[2020-08-14] MEDS: morphine SULFATE 10 MG/ML, 1ML IVPush PRN ×3 (02:46→23:05)
[2020-08-14] MEDS: HEPARIN 5,000 UNITS/ML, 1ML SQ SCH ×4 (05:30→21:52)
[2020-08-14] MEDS: CARVEDILOL 3.125 MG TABLET PO SCH ×2 (06:00→18:00)
[2020-08-14] MEDS: INSULIN LISPRO 100 UNITS/ML, PEN SQ-INSULIN SCH ×4 (07:20→21:54)
[2020-08-14] MEDS: ASCORBIC ACID 250 MG TAB PO SCH ×2 (08:23→21:52)
[2020-08-14] MEDS: ZINC SULFATE 220 MG CAPSULE PO SCH (08:23)
[2020-08-14] MEDS: CHOLECALCIFEROL 5,000u TAB PO SCH (08:23)
[2020-08-14] MEDS: METHADONE 10 MG TABLET PO SCH (08:23)
[2020-08-14] MEDS: SODIUM CHLORIDE FLUSH 10ML SYR IVF SCH ×2 (08:23→21:52)
[2020-08-14] MEDS: FUROSEMIDE 40 MG TABLET PO SCH (08:26)
[2020-08-14] MEDS: SENNA/DOCUSATE TABLET PO SCH (08:33)
[2020-08-14] MEDS: LISINOPRIL 5 MG TABLET PO SCH (08:33)
[2020-08-14] MEDS: SPIRONOLACTONE 25 MG TABLET PO SCH (08:33)
[2020-08-14 13:13] VITALS: BP 125/86
[2020-08-14 18:28] VITALS: BP 106/54
[2020-08-14] MEDS: INSULIN GLARGINE 100 UNITS/ML, PEN SQ-INSULIN SCH (21:53)
[2020-08-15] MEDS: PIPERACILLIN/TAZO 3.375 GM in DEXTROSE 5% 50 ML IV SCH ×4 (00:09→17:25)
[2020-08-15 00:27] VITALS: BP 102/59
[2020-08-15] MEDS: morphine SULFATE 10 MG/ML, 1ML IVPush PRN ×4 (03:13→20:12)
[2020-08-15] MEDS: HEPARIN 5,000 UNITS/ML, 1ML SQ SCH ×3 (05:22→20:19)
[2020-08-15] MEDS: CARVEDILOL 3.125 MG TABLET PO SCH ×2 (05:25→17:29)
[2020-08-15] MEDS: INSULIN LISPRO 100 UNITS/ML, PEN SQ-INSULIN SCH ×4 (07:00→21:00)
[2020-08-15 07:21] VITALS: BP 103/73
[2020-08-15] MEDS: SODIUM CHLORIDE FLUSH 10ML SYR IVF SCH ×2 (08:58→20:12)
[2020-08-15] MEDS: ASCORBIC ACID 250 MG TAB PO SCH ×2 (08:58→20:12)
[2020-08-15] MEDS: LISINOPRIL 5 MG TABLET PO SCH ×2 (08:58→09:00)
[2020-08-15] MEDS: CHOLECALCIFEROL 5,000u TAB PO SCH (08:58)
[2020-08-15] MEDS: FUROSEMIDE 40 MG TABLET PO SCH (08:58)
[2020-08-15] MEDS: SENNA/DOCUSATE TABLET PO SCH (08:59)
[2020-08-15] MEDS: METHADONE 10 MG TABLET PO SCH (08:59)
[2020-08-15] MEDS: SPIRONOLACTONE 25 MG TABLET PO SCH (08:59)
[2020-08-15] MEDS: ZINC SULFATE 220 MG CAPSULE PO SCH (09:02)
[2020-08-15 12:49] VITALS: BP 100/65
[2020-08-15 18:42] VITALS: BP 109/63
[2020-08-15] MEDS: INSULIN GLARGINE 100 UNITS/ML, PEN SQ-INSULIN SCH (21:31)
[2020-08-16] MEDS: PIPERACILLIN/TAZO 3.375 GM in DEXTROSE 5% 50 ML IV SCH ×4 (00:11→18:00)
[2020-08-16] MEDS: morphine SULFATE 10 MG/ML, 1ML IVPush PRN ×5 (00:11→18:11)
[2020-08-16 00:14] VITALS: BP 115/76
[2020-08-16] MEDS: HEPARIN 5,000 UNITS/ML, 1ML SQ SCH ×3 (03:34→20:37)
[2020-08-16] MEDS: CARVEDILOL 3.125 MG TABLET PO SCH ×2 (05:21→17:59)
[2020-08-16] MEDS: INSULIN LISPRO 100 UNITS/ML, PEN SQ-INSULIN SCH ×4 (07:41→20:42)
[2020-08-16 08:01] VITALS: BP 142/68
[2020-08-16] MEDS: SODIUM CHLORIDE FLUSH 10ML SYR IVF SCH ×2 (08:47→20:45)
[2020-08-16] MEDS: ASCORBIC ACID 250 MG TAB PO SCH ×2 (08:48→20:35)
[2020-08-16] MEDS: METHADONE 10 MG TABLET PO SCH (08:48)
[2020-08-16] MEDS: ZINC SULFATE 220 MG CAPSULE PO SCH (08:48)
[2020-08-16] MEDS: SPIRONOLACTONE 25 MG TABLET PO SCH (08:48)
[2020-08-16] MEDS: CHOLECALCIFEROL 5,000u TAB PO SCH (08:48)
[2020-08-16] MEDS: FUROSEMIDE 40 MG TABLET PO SCH (08:48)
[2020-08-16] MEDS: LISINOPRIL 5 MG TABLET PO SCH (08:49)
[2020-08-16] MEDS: SENNA/DOCUSATE TABLET PO SCH (08:49)
[2020-08-16 13:47] VITALS: BP 100/64
[2020-08-16 18:23] VITALS: BP 121/81
[2020-08-16] MEDS: INSULIN GLARGINE 100 UNITS/ML, PEN SQ-INSULIN SCH (20:42)
[2020-08-16] MEDS: MELATONIN 5 MG TABLET PO SCH ×2 (21:30→21:58)
[2020-08-17] MEDS: PIPERACILLIN/TAZO 3.375 GM in DEXTROSE 5% 50 ML IV SCH ×5 (00:47→23:53)
[2020-08-17 00:56] VITALS: BP 136/92
[2020-08-17] MEDS: morphine SULFATE 10 MG/ML, 1ML IVPush PRN ×3 (01:18→18:57)
[2020-08-17] MEDS: HEPARIN 5,000 UNITS/ML, 1ML SQ SCH (05:12)
[2020-08-17 05:14] LABS: HCT (SEDRATE) 29.6 % (39.2-51.8)
[2020-08-17 05:15] LABS: BASOPHILS % (AUTO) 1 % (0-1); EOSINOPHILS % (AUTO) 2 % (1-7); LYMPHOCYTES % (AUTO) 26 % (22-44); MEAN CORPUSCULAR HEMOGLOBIN 25.5 pg (27.5-34.5); MEAN CORPUSCULAR HGB CONC 31.5 g/dL (33.2-36.2); MEAN PLATELET VOLUME 7.1 fL (7.4-10.4); MONOCYTES % (AUTO) 11 % (2-9); NEUTROPHILS % (AUTO) 60 % (42-75); PLATELET COUNT 359 x10^3/uL (130-400); RED BLOOD COUNT 3.67 x10^6/uL (4.38-5.82); RED CELL DISTRIBUTION WIDTH 16.6 % (9.4-14.8)
[2020-08-17 05:16] LABS: MD NO
[2020-08-17 05:26] LABS: CHLORIDE 99 mmol/L (98-107)
[2020-08-17 05:34] LABS: ALANINE AMINOTRANSFERASE 32 U/L (12-78); ALBUMIN 2.3 g/dL (3.4-5.0); ALKALINE PHOSPHATASE 73 U/L (45-117); ANION GAP 3 mmol/L (5-15); BILIRUBIN,TOTAL 0.2 mg/dL (0.2-1.0); C-REACTIVE PROTEIN, QUANT 0.55 mg/dL (0.02-0.49); CALCIUM 8.6 mg/dL (8.5-10.1); CREATININE 1.01 mg/dL (0.7-1.3); TOTAL PROTEIN 7.8 g/dL (6.4-8.2)
[2020-08-17] MEDS: CARVEDILOL 3.125 MG TABLET PO SCH ×2 (05:48→17:21)
[2020-08-17 07:04] VITALS: BP 107/69
[2020-08-17] MEDS: INSULIN LISPRO 100 UNITS/ML, PEN SQ-INSULIN SCH ×4 (08:06→20:27)
[2020-08-17] MEDS: CHOLECALCIFEROL 5,000u TAB PO SCH (08:06)
[2020-08-17] MEDS: FUROSEMIDE 40 MG TABLET PO SCH (08:07)
[2020-08-17] MEDS: ASCORBIC ACID 250 MG TAB PO SCH ×2 (08:07→20:20)
[2020-08-17] MEDS: ZINC SULFATE 220 MG CAPSULE PO SCH (08:07)
[2020-08-17] MEDS: METHADONE 10 MG TABLET PO SCH (08:07)
[2020-08-17] MEDS: SPIRONOLACTONE 25 MG TABLET PO SCH (08:08)
[2020-08-17] MEDS: SENNA/DOCUSATE TABLET PO SCH (08:08)
[2020-08-17] MEDS: SODIUM CHLORIDE FLUSH 10ML SYR IVF SCH ×2 (08:08→20:21)
[2020-08-17] MEDS: LISINOPRIL 5 MG TABLET PO SCH (08:08)
[2020-08-17] MEDS: ENOXAPARIN 40 MG/0.4 ML SQ SCH (08:30)
[2020-08-17 12:57] VITALS: BP 108/72
[2020-08-17 19:59] VITALS: BP 129/86
[2020-08-17] MEDS: MELATONIN 5 MG TABLET PO SCH (20:21)
[2020-08-17] MEDS: INSULIN GLARGINE 100 UNITS/ML, PEN SQ-INSULIN SCH (20:28)
[2020-08-18 00:42] VITALS: BP 119/79
[2020-08-18] MEDS: morphine SULFATE 10 MG/ML, 1ML IVPush PRN ×2 (01:15→07:30)
[2020-08-18] MEDS: CARVEDILOL 3.125 MG TABLET PO SCH (05:07)
[2020-08-18 05:20] LABS: % IRON SATURATION 10 % (20-55); IRON LEVEL 46 mcg/dL (65-175); TOTAL IRON BINDING CAPACITY 457 mcg/dL (250-450)
[2020-08-18] MEDS: PIPERACILLIN/TAZO 3.375 GM in DEXTROSE 5% 50 ML IV SCH ×3 (05:45→17:17)
[2020-08-18] MEDS: INSULIN LISPRO 100 UNITS/ML, PEN SQ-INSULIN SCH ×4 (07:00→20:41)
[2020-08-18] MEDS: ASCORBIC ACID 250 MG TAB PO SCH ×2 (07:32→20:40)
[2020-08-18] MEDS: ZINC SULFATE 220 MG CAPSULE PO SCH (07:32)
[2020-08-18] MEDS: CHOLECALCIFEROL 5,000u TAB PO SCH (07:32)
[2020-08-18] MEDS: FUROSEMIDE 40 MG TABLET PO SCH (07:32)
[2020-08-18] MEDS: METHADONE 10 MG TABLET PO SCH (07:33)
[2020-08-18] MEDS: ENOXAPARIN 40 MG/0.4 ML SQ SCH (07:35)
[2020-08-18] MEDS: LISINOPRIL 5 MG TABLET PO SCH (07:35)
[2020-08-18] MEDS: SODIUM CHLORIDE FLUSH 10ML SYR IVF SCH ×2 (07:36→20:41)
[2020-08-18 07:38] VITALS: BP 108/68
[2020-08-18] MEDS ORDERED: MELATONIN 5 MG TABLET PO PRN (08:00)
[2020-08-18] MEDS ORDERED: SENNA/DOCUSATE TABLET PO PRN (08:00)
[2020-08-18 12:21] VITALS: BP 112/67
[2020-08-18] MEDS: ACETAMINOPHEN 325 MG TABLET PO PRN (19:44)
[2020-08-18 19:45] VITALS: BP 105/70
[2020-08-18] MEDS: INSULIN GLARGINE 100 UNITS/ML, PEN SQ-INSULIN SCH (20:41)
[2020-08-19] MEDS: PIPERACILLIN/TAZO 3.375 GM in DEXTROSE 5% 50 ML IV SCH ×4 (00:21→18:37)
[2020-08-19 00:24] VITALS: BP 146/98
[2020-08-19] MEDS: ACETAMINOPHEN 325 MG TABLET PO PRN ×2 (02:25→19:46)
[2020-08-19] MEDS: LISINOPRIL 5 MG TABLET PO SCH (07:54)
[2020-08-19] MEDS: ASCORBIC ACID 250 MG TAB PO SCH ×2 (08:01→21:16)
[2020-08-19] MEDS: INSULIN LISPRO 100 UNITS/ML, PEN SQ-INSULIN SCH ×4 (08:01→21:17)
[2020-08-19] MEDS: METHADONE 10 MG TABLET PO SCH (08:01)
[2020-08-19] MEDS: FUROSEMIDE 40 MG TABLET PO SCH (08:02)
[2020-08-19] MEDS: CHOLECALCIFEROL 5,000u TAB PO SCH (08:02)
[2020-08-19] MEDS: ZINC SULFATE 220 MG CAPSULE PO SCH (08:02)
[2020-08-19] MEDS: ENOXAPARIN 40 MG/0.4 ML SQ SCH (08:03)
[2020-08-19] MEDS: SODIUM CHLORIDE FLUSH 10ML SYR IVF SCH ×2 (08:05→21:17)
[2020-08-19 08:06] VITALS: BP 104/66
[2020-08-19 13:23] VITALS: BP 113/82
[2020-08-19 19:08] VITALS: BP 104/71
[2020-08-19] MEDS: INSULIN GLARGINE 100 UNITS/ML, PEN SQ-INSULIN SCH (21:17)
[2020-08-20 00:31] VITALS: BP 113/71
[2020-08-20] MEDS: PIPERACILLIN/TAZO 3.375 GM in DEXTROSE 5% 50 ML IV SCH ×4 (01:29→19:46)
[2020-08-20] MEDS: ACETAMINOPHEN 325 MG TABLET PO PRN ×2 (01:30→15:03)
[2020-08-20] MEDS: INSULIN LISPRO 100 UNITS/ML, PEN SQ-INSULIN SCH ×4 (07:00→20:02)
[2020-08-20 07:09] VITALS: BP 102/68
[2020-08-20] MEDS: ENOXAPARIN 40 MG/0.4 ML SQ SCH (07:29)
[2020-08-20] MEDS: SODIUM CHLORIDE FLUSH 10ML SYR IVF SCH ×2 (07:29→19:47)
[2020-08-20] MEDS: METHADONE 10 MG TABLET PO SCH (07:30)
[2020-08-20] MEDS: FUROSEMIDE 40 MG TABLET PO SCH (07:30)
[2020-08-20] MEDS: ZINC SULFATE 220 MG CAPSULE PO SCH (07:30)
[2020-08-20] MEDS: CHOLECALCIFEROL 5,000u TAB PO SCH (07:31)
[2020-08-20] MEDS: ASCORBIC ACID 250 MG TAB PO SCH ×2 (07:31→20:01)
[2020-08-20] MEDS: LISINOPRIL 5 MG TABLET PO SCH (07:31)
[2020-08-20 13:16] VITALS: BP 102/64
[2020-08-20] MEDS: INSULIN GLARGINE 100 UNITS/ML, PEN SQ-INSULIN SCH (20:01)
[2020-08-20 21:09] VITALS: BP 92/63
[2020-08-21 00:22] VITALS: BP 97/67
[2020-08-21] MEDS: PIPERACILLIN/TAZO 3.375 GM in DEXTROSE 5% 50 ML IV SCH ×4 (02:13→19:40)
[2020-08-21 06:25] VITALS: BP 100/65
[2020-08-21] MEDS: INSULIN LISPRO 100 UNITS/ML, PEN SQ-INSULIN SCH ×4 (07:00→19:52)
[2020-08-21] MEDS: FUROSEMIDE 40 MG TABLET PO SCH (08:27)
[2020-08-21] MEDS: ZINC SULFATE 220 MG CAPSULE PO SCH (08:27)
[2020-08-21] MEDS: CHOLECALCIFEROL 5,000u TAB PO SCH (08:27)
[2020-08-21] MEDS: ASCORBIC ACID 250 MG TAB PO SCH ×2 (08:27→19:52)
[2020-08-21] MEDS: METHADONE 10 MG TABLET PO SCH (08:27)
[2020-08-21] MEDS: LISINOPRIL 5 MG TABLET PO SCH (08:28)
[2020-08-21] MEDS: SODIUM CHLORIDE FLUSH 10ML SYR IVF SCH ×2 (08:28→19:41)
[2020-08-21] MEDS: ENOXAPARIN 40 MG/0.4 ML SQ SCH (08:28)
[2020-08-21] MEDS: ACETAMINOPHEN 325 MG TABLET PO PRN ×2 (11:18→19:52)
[2020-08-21 13:06] VITALS: BP 99/69
[2020-08-21 18:42] VITALS: BP 102/70
[2020-08-21] MEDS: INSULIN GLARGINE 100 UNITS/ML, PEN SQ-INSULIN SCH (19:53)
[2020-08-22 00:01] VITALS: BP 106/63
[2020-08-22] MEDS: PIPERACILLIN/TAZO 3.375 GM in DEXTROSE 5% 50 ML IV SCH ×4 (02:28→20:03)
[2020-08-22 05:47] LABS: BASOPHILS % (AUTO) 1 % (0-1); EOSINOPHILS % (AUTO) 2 % (1-7); LYMPHOCYTES % (AUTO) 27 % (22-44); MEAN CORPUSCULAR HGB CONC 31.9 g/dL (33.2-36.2); MEAN PLATELET VOLUME 7.3 fL (7.4-10.4); MONOCYTES % (AUTO) 8 % (2-9); NEUTROPHILS % (AUTO) 62 % (42-75); PLATELET COUNT 294 x10^3/uL (130-400); RED BLOOD COUNT 3.65 x10^6/uL (4.38-5.82); RED CELL DISTRIBUTION WIDTH 17.4 % (9.4-14.8)
[2020-08-22 05:48] LABS: MD NO
[2020-08-22 05:59] LABS: CHLORIDE 100 mmol/L (98-107)
[2020-08-22 06:04] LABS: ANION GAP 4 mmol/L (5-15); CALCIUM 8.5 mg/dL (8.5-10.1); CREATININE 1.09 mg/dL (0.7-1.3)
[2020-08-22] MEDS: ACETAMINOPHEN 325 MG TABLET PO PRN ×3 (06:09→22:03)
[2020-08-22 06:38] VITALS: BP 92/70
[2020-08-22] MEDS: INSULIN LISPRO 100 UNITS/ML, PEN SQ-INSULIN SCH ×4 (07:00→20:18)
[2020-08-22] MEDS: ENOXAPARIN 40 MG/0.4 ML SQ SCH (08:22)
[2020-08-22] MEDS: ZINC SULFATE 220 MG CAPSULE PO SCH (08:22)
[2020-08-22] MEDS: ASCORBIC ACID 250 MG TAB PO SCH ×2 (08:23→20:03)
[2020-08-22] MEDS: METHADONE 10 MG TABLET PO SCH (08:23)
[2020-08-22] MEDS: CHOLECALCIFEROL 5,000u TAB PO SCH (08:23)
[2020-08-22] MEDS: FUROSEMIDE 40 MG TABLET PO SCH (08:23)
[2020-08-22] MEDS: LISINOPRIL 5 MG TABLET PO SCH (08:26)
[2020-08-22] MEDS: SODIUM CHLORIDE FLUSH 10ML SYR IVF SCH ×2 (08:26→20:13)
[2020-08-22 12:46] VITALS: BP 99/64
[2020-08-22 20:15] VITALS: BP 106/75
[2020-08-22] MEDS: INSULIN GLARGINE 100 UNITS/ML, PEN SQ-INSULIN SCH (20:18)
[2020-08-23 00:39] VITALS: BP 104/64
[2020-08-23] MEDS: PIPERACILLIN/TAZO 3.375 GM in DEXTROSE 5% 50 ML IV SCH ×4 (01:39→20:24)
[2020-08-23] MEDS: ACETAMINOPHEN 325 MG TABLET PO PRN ×4 (04:06→23:31)
[2020-08-23 06:43] VITALS: BP 104/77
[2020-08-23] MEDS: INSULIN LISPRO 100 UNITS/ML, PEN SQ-INSULIN SCH ×4 (07:00→20:30)
[2020-08-23] MEDS: LISINOPRIL 5 MG TABLET PO SCH (07:50)
[2020-08-23] MEDS: FUROSEMIDE 40 MG TABLET PO SCH (07:51)
[2020-08-23] MEDS: METHADONE 10 MG TABLET PO SCH (07:51)
[2020-08-23] MEDS: SODIUM CHLORIDE FLUSH 10ML SYR IVF SCH ×2 (07:51→21:00)
[2020-08-23] MEDS: ASCORBIC ACID 250 MG TAB PO SCH ×3 (07:52→21:00)
[2020-08-23] MEDS: ZINC SULFATE 220 MG CAPSULE PO SCH (07:52)
[2020-08-23] MEDS: CHOLECALCIFEROL 5,000u TAB PO SCH (07:52)
[2020-08-23] MEDS: ENOXAPARIN 40 MG/0.4 ML SQ SCH (07:53)
[2020-08-23 13:04] VITALS: BP 106/68
[2020-08-23 20:07] VITALS: BP 104/70
[2020-08-23] MEDS: INSULIN GLARGINE 100 UNITS/ML, PEN SQ-INSULIN SCH (20:28)
[2020-08-24 00:12] VITALS: BP 103/68
[2020-08-24] MEDS: PIPERACILLIN/TAZO 3.375 GM in DEXTROSE 5% 50 ML IV SCH ×4 (02:11→20:15)
[2020-08-24] MEDS: ACETAMINOPHEN 325 MG TABLET PO PRN (05:51)
[2020-08-24 06:57] LABS: BASOPHILS % (AUTO) 1 % (0-1); EOSINOPHILS % (AUTO) 3 % (1-7); LYMPHOCYTES % (AUTO) 27 % (22-44); MEAN CORPUSCULAR HEMOGLOBIN 25.7 pg (27.5-34.5); MEAN CORPUSCULAR HGB CONC 31.8 g/dL (33.2-36.2); MEAN PLATELET VOLUME 7.2 fL (7.4-10.4); MONOCYTES % (AUTO) 10 % (2-9); NEUTROPHILS % (AUTO) 59 % (42-75); PLATELET COUNT 252 x10^3/uL (130-400); RED BLOOD COUNT 3.84 x10^6/uL (4.38-5.82); RED CELL DISTRIBUTION WIDTH 17.7 % (9.4-14.8)
[2020-08-24 06:58] LABS: MD NO
[2020-08-24] MEDS: INSULIN LISPRO 100 UNITS/ML, PEN SQ-INSULIN SCH ×4 (07:00→20:22)
[2020-08-24 07:07] LABS: ALBUMIN 2.5 g/dL (3.4-5.0); CALCIUM 8.6 mg/dL (8.5-10.1); CHLORIDE 100 mmol/L (98-107)
[2020-08-24 07:11] LABS: ALANINE AMINOTRANSFERASE 40 U/L (12-78); ALKALINE PHOSPHATASE 64 U/L (45-117); BILIRUBIN,TOTAL 0.2 mg/dL (0.2-1.0); C-REACTIVE PROTEIN, QUANT 0.23 mg/dL (0.02-0.49); CREATININE 1.11 mg/dL (0.7-1.3); TOTAL PROTEIN 8.1 g/dL (6.4-8.2)
[2020-08-24 07:20] LABS: ANION GAP 4 mmol/L (5-15)
[2020-08-24 07:54] VITALS: BP 96/68
[2020-08-24] MEDS: ENOXAPARIN 40 MG/0.4 ML SQ SCH (08:06)
[2020-08-24] MEDS: LISINOPRIL 5 MG TABLET PO SCH (08:07)
[2020-08-24] MEDS: SODIUM CHLORIDE FLUSH 10ML SYR IVF SCH ×2 (08:07→20:16)
[2020-08-24] MEDS: METHADONE 10 MG TABLET PO SCH (08:07)
[2020-08-24] MEDS: CHOLECALCIFEROL 5,000u TAB PO SCH (08:07)
[2020-08-24] MEDS: FUROSEMIDE 40 MG TABLET PO SCH (08:07)
[2020-08-24] MEDS: ASCORBIC ACID 250 MG TAB PO SCH ×2 (08:08→20:15)
[2020-08-24] MEDS: ZINC SULFATE 220 MG CAPSULE PO SCH (08:08)
[2020-08-24 08:27] VITALS: BP 100/67
[2020-08-24 15:33] VITALS: BP 102/76
[2020-08-24 19:29] VITALS: BP 104/69
[2020-08-24] MEDS: INSULIN GLARGINE 100 UNITS/ML, PEN SQ-INSULIN SCH (20:23)
[2020-08-25] MEDS: PIPERACILLIN/TAZO 3.375 GM in DEXTROSE 5% 50 ML IV SCH ×4 (01:24→20:03)
[2020-08-25 02:12] VITALS: BP 113/74
[2020-08-25] MEDS: ACETAMINOPHEN 325 MG TABLET PO PRN (06:01)
[2020-08-25 06:15] LABS: CREATININE 1.14 mg/dL (0.7-1.3)
[2020-08-25] MEDS: INSULIN LISPRO 100 UNITS/ML, PEN SQ-INSULIN SCH ×4 (07:00→21:06)
[2020-08-25 07:30] VITALS: BP 113/79
[2020-08-25] MEDS: ENOXAPARIN 40 MG/0.4 ML SQ SCH (07:54)
[2020-08-25] MEDS: LISINOPRIL 5 MG TABLET PO SCH (09:00)
[2020-08-25] MEDS: CHOLECALCIFEROL 5,000u TAB PO SCH (09:18)
[2020-08-25] MEDS: ZINC SULFATE 220 MG CAPSULE PO SCH (09:18)
[2020-08-25] MEDS: FUROSEMIDE 40 MG TABLET PO SCH (09:19)
[2020-08-25] MEDS: METHADONE 10 MG TABLET PO SCH (09:19)
[2020-08-25] MEDS: ASCORBIC ACID 250 MG TAB PO SCH ×2 (09:19→20:03)
[2020-08-25] MEDS: SODIUM CHLORIDE FLUSH 10ML SYR IVF SCH ×2 (09:43→20:03)
[2020-08-25 15:46] VITALS: BP 96/67
[2020-08-25 19:04] VITALS: BP 121/72
[2020-08-25] MEDS: INSULIN GLARGINE 100 UNITS/ML, PEN SQ-INSULIN SCH (21:04)
[2020-08-26 00:19] VITALS: BP 101/66
== END 2020-08-26 01:45 | disposition left against medical advice (07) | DRG 344 ==
LOC: ED 17:30 → EDIP 17:36 → ED 17:44 → 4EST 18:56 → 5SO 08-02 15:38 → 4NE 08-06 16:02 → 3N 08-07 13:36
PROVIDERS: ADMIT Family Medicine; ATTEND Hospitalist
PROC: 0W9930Z Drainage of Right Pleural Cavity with Drainage Device, Percutaneous Approach (ICD-10-PCS; principal; 2020-08-01)
DX: E11.69 Type 2 diabetes mellitus with other specified complication (principal); M86.172 Other acute osteomyelitis, left ankle and foot; M86.171 Other acute osteomyelitis, right ankle and foot; J96.01 Acute respiratory failure with hypoxia; G93.40 Encephalopathy, unspecified; I50.43 Acute on chronic combined systolic (congestive) and diastolic (congestive) heart failure; J18.9 Pneumonia, unspecified organism; E44.0 Moderate protein-calorie malnutrition; E11.621 Type 2 diabetes mellitus with foot ulcer; J91.8 Pleural effusion in other conditions classified elsewhere; I27.20 Pulmonary hypertension, unspecified; Z66 Do not resuscitate; E11.628 Type 2 diabetes mellitus with other skin complications; E11.65 Type 2 diabetes mellitus with hyperglycemia; E87.1 Hypo-osmolality and hyponatremia; L03.115 Cellulitis of right lower limb; L97.529 Non-pressure chronic ulcer of other part of left foot with unspecified severity; L97.519 Non-pressure chronic ulcer of other part of right foot with unspecified severity; D50.9 Iron deficiency anemia, unspecified; F11.10 Opioid abuse, uncomplicated; F15.10 Other stimulant abuse, uncomplicated; F17.200 Nicotine dependence, unspecified, uncomplicated; I42.0 Dilated cardiomyopathy; I87.8 Other specified disorders of veins; L03.116 Cellulitis of left lower limb; N45.1 Epididymitis; Z79.4 Long term (current) use of insulin; Z83.3 Family history of diabetes mellitus; Z91.19 Patient's noncompliance with other medical treatment and regimen; R79.89 Other specified abnormal findings of blood chemistry; Z20.822 Contact with and (suspected) exposure to COVID-19; Z86.16 Personal history of COVID-19; Z90.49 Acquired absence of other specified parts of digestive tract; B96.1 Klebsiella pneumoniae [K. pneumoniae] as the cause of diseases classified elsewhere; B96.20 Unspecified Escherichia coli [E. coli] as the cause of diseases classified elsewhere; B95.1 Streptococcus, group B, as the cause of diseases classified elsewhere; B96.89 Other specified bacterial agents as the cause of diseases classified elsewhere
CPT/HCPCS: 32555; 36415; 71045; 72020; 72050; 72190; 76870; 80048; 80053; 80061; 80202; 80307; 80320; 82010; 82565; 82728; 82803; 82947; 82962; 83036; 83540; 83550; 83615; 83690; 83880; 84145; 84157; 85025; 85651; 86140; 87040; 87070; 87077; 87081; 87147; 87186; 87205; 87491; 87591; 87635; 88112; 88305; 89051; 93005; 93306; 93356; 93970; 96374; 96375; 99285; G0378; J0295; J1644; J1650; J1940; J2543; J3370; A9575; G0480; J1815; J2270; J7040

== ENCOUNTER 2020-10-02 21:58 | Emergency (ER) | payer MEDICAID ==
[~2020-10-02] VITALS: Ht 180.3 cm; Wt 80.0 kg
[~2020-10-02 21:58] MED LIST: METH10TA2 PO
--- NOTE | 2020-10-02 23:38 | NUR ---
gill box tender: pt from lobby to room 37
[2020-10-03 00:29] LABS: BASOPHILS % (AUTO) 1 % (0-1); EOSINOPHILS % (AUTO) 1 % (1-7); LYMPHOCYTES % (AUTO) 26 % (22-44); MEAN CORPUSCULAR HEMOGLOBIN 24.4 pg (27.5-34.5); MEAN CORPUSCULAR HGB CONC 31.5 g/dL (33.2-36.2); MEAN PLATELET VOLUME 7.5 fL (7.4-10.4); MONOCYTES % (AUTO) 7 % (2-9); NEUTROPHILS % (AUTO) 64 % (42-75); PLATELET COUNT 377 x10^3/uL (130-400); RED BLOOD COUNT 4.86 x10^6/uL (4.38-5.82); RED CELL DISTRIBUTION WIDTH 19.8 % (9.4-14.8)
[2020-10-03 00:36] LABS: ALANINE AMINOTRANSFERASE 19 U/L (12-78); ALBUMIN 2.9 g/dL (3.4-5.0); ANION GAP 5 mmol/L (5-15); CALCIUM 8.6 mg/dL (8.5-10.1); CHLORIDE 109 mmol/L (98-107); CREATININE 1.01 mg/dL (0.7-1.3)
[2020-10-03 00:40] LABS: ALKALINE PHOSPHATASE 120 U/L (45-117); BILIRUBIN,TOTAL 0.5 mg/dL (0.2-1.0); TROPONIN I < 0.015 ng/mL (0.000-0.045)
[2020-10-03] MEDS ORDERED: SODIUM CHLORIDE FLUSH 10ML SYR IVF ONE (01:00)
[2020-10-03] MEDS ORDERED: FUROSEMIDE 40 MG/4 ML IV ONE (01:00)
[2020-10-03 02:08] VITALS: BP 141/85
== END 2020-10-03 02:10 | disposition home or self-care (01) ==
LOC: ED 23:00
DX: I50.1 Left ventricular failure, unspecified (principal); R06.00 Dyspnea, unspecified; R06.02 Shortness of breath; F15.10 Other stimulant abuse, uncomplicated; F17.210 Nicotine dependence, cigarettes, uncomplicated; Z72.9 Problem related to lifestyle, unspecified
CPT/HCPCS: 36415; 71045; 80053; 83880; 84484; 85025; 93005; 99406

== ENCOUNTER 2020-10-19 21:45 | Inpatient (IN) | payer MEDICAID ==
[~2020-10-19] VITALS: Ht 180.3 cm; Wt 74.3 kg
[2020-10-19 23:09] LABS: MEAN CORPUSCULAR HEMOGLOBIN 23.3 pg (27.5-34.5); MEAN CORPUSCULAR HGB CONC 30.8 g/dL (33.2-36.2); MEAN PLATELET VOLUME 7.6 fL (7.4-10.4); PLATELET COUNT 226 x10^3/uL (130-400); RED BLOOD COUNT 4.95 x10^6/uL (4.38-5.82); RED CELL DISTRIBUTION WIDTH 19.7 % (9.4-14.8)
[2020-10-19 23:21] LABS: ALANINE AMINOTRANSFERASE 414 U/L (12-78); ALBUMIN 2.4 g/dL (3.4-5.0); ALKALINE PHOSPHATASE 135 U/L (45-117); BAND#(MANUAL) 2.41 x10^3/uL; BANDS%(MANUAL) 19 % (0-7); BILIRUBIN,TOTAL 1.2 mg/dL (0.2-1.0); CREATININE 2.68 mg/dL (0.7-1.3); LYMPH#(MANUAL) 1.14 x10^3/uL (1-3.4); LYMPHS% (MANUAL) 9 % (22-44); METAMYELOCYTES# (MANUAL) 0.13 x10^3/uL (0-0); METAMYELOCYTES% (MANUAL) 1 % (0-1); MONOS#(MANUAL) 0.13 x10^3/uL (0.3-2.7); MONOS% (MANUAL) 1 % (2-9); SEG#(MANUAL) 8.89 x10^3/uL (1.8-6.8); SEGS% (MANUAL) 70 % (42-75); TOTAL PROTEIN 8.1 g/dL (6.4-8.2)
[2020-10-19 23:22] LABS: ANION GAP 13 mmol/L (5-15); ANISOCYTOSIS 1+; CALCIUM 7.5 mg/dL (8.5-10.1); CHLORIDE 104 mmol/L (98-107); HYPOCHROMIA 1+; MICROCYTOSIS 1+; POLYCHROMASIA 1+
--- NOTE | 2020-10-19 23:25 | NUR ---
MAINTENANCE ASSISTANT: PT. TO ROOM FROM LOBBY AT THIS TIME.
--- NOTE | 2020-10-19 23:26 | NUR ---
PT. GIVEN JUICE.
[2020-10-19] MEDS ORDERED: DEXTROSE 50%, 50ML SYRINGE IVPush ONE (23:30)
[2020-10-19] MEDS ORDERED: INSULIN REGULAR 100 UNITS/ML, 3ML VIAL IVPush ONE (23:30)
[2020-10-19] MEDS ORDERED: CALCIUM CHLORIDE 10%, 10ML SYR IVPush ONE (23:30)
[2020-10-19 23:39] LABS: ECHINOCYTES 1+
[2020-10-19 23:40] LABS: <PLATELET ESTIMATE> ADEQUATE; LARGE PLATELETS 1+
--- NOTE | 2020-10-19 23:57 | NUR ---
EDYTA OF RBS:22. GIVEN JUICE & PB/CRACKERS. EATING & DRINKING WELL. ON MONITOR. AT . UNSUCCESSFUL IV X2.
--- NOTE | 2020-10-20 00:01 | NUR ---
REPORT FROM MARTI TORRES WITH ASSESSMENT PATIENT ALERT, NO OBVIOUS DEFICITS VSS ON MOTOR AND GENERATOR BRUSH MAKER PIV PLACED FROM WHICH BASIC LABS WERE DRAWN REPEAT FSBS 25, D10 DRIP STARTED AT 300/HR
[2020-10-20] MEDS ORDERED: DEXTROSE 50%, 50ML SYRINGE ONE ×2 (00:27→01:16)
[2020-10-20] MEDS: DEXTROSE 10% 250 ML IV SCH ×4 (00:29→06:10)
[2020-10-20] MEDS ORDERED: DEXTROSE 10%, 250ML IV ONE (00:30)
--- NOTE | 2020-10-20 01:05 | NUR ---
After amp of d50 and d10 at 300ml repeat fsbs 86 Despite advertising copywriter objection erp at bedside for thoracentesis
[2020-10-20] MEDS ORDERED: DEXTROSE 10%, 1,000ML IV STA (01:14)
[2020-10-20] MEDS ORDERED: CALCIUM CHLORIDE 10%, 10ML SYR ONE (01:16)
--- NOTE | 2020-10-20 01:24 | NUR ---
2L LITERS PULLED FROM LEFT LUNG, SAMPLE SENT FOR ANALYSIS. REPEAT CXR ORDERED MEDICATED PER EMAR WITH CALCIUM, TO AVOID INSULIN, DEXTROSE ALREADY BEING ADMINISTERED IN COPIOUS AMOUNTS
[2020-10-20] MEDS ORDERED: DEXTROSE IV SCH (01:30)
--- NOTE | 2020-10-20 01:41 | NUR ---
RADIOLOGY AT BEDSIDE FOR POST THORACENTESIS CXR D10 SWITCHED FOR D20, RATE TO 100ML/HR
[2020-10-20] MEDS ORDERED: INSU100V8 SQ (01:51)
[2020-10-20] MEDS ORDERED: GUAIFENESIN/DM 200-20MG, 10ML UDC PO PRN (02:30)
[2020-10-20] MEDS ORDERED: DEXTROSE 50%, 50ML SYRINGE IVPush PRN (02:30)
[2020-10-20] MEDS ORDERED: DOCUSATE 100 MG CAPSULE PO PRN (02:30)
[2020-10-20] MEDS ORDERED: DEXTROSE 4 GM TAB.CHEW PO PRN (02:30)
[2020-10-20] MEDS ORDERED: DEXTROSE 5% 1,000 ML IV SCH (02:30)
[2020-10-20] MEDS ORDERED: hydrALAzine 20 MG/ML, 1ML IVPush PRN (02:30)
[2020-10-20] MEDS ORDERED: GLUCAGON 1 MG IM PRN (02:30)
--- NOTE | 2020-10-20 02:44 | NUR ---
PT EATING SANDWICH. LABS DRAWN & SENT. [facility] WILL [facility].
[2020-10-20] MEDS ORDERED: HEPARIN 5,000 UNITS/ML, 1ML IV ONE (03:00)
[2020-10-20] MEDS ORDERED: HEPARIN 5,000 UNITS/ML, 1ML ONE (03:44)
[2020-10-20] MEDS ORDERED: HEPARIN 25,000 UNITS/250ML PMX 250 ML ONE (03:45)
[2020-10-20] MEDS: HEPARIN 25,000 UNITS/250ML PMX 250 ML IV PRN ×2 (04:01→19:16)
[2020-10-20] MEDS ORDERED: DOXYCYCLINE 100 MG in DEXTROSE 5% 250 ML IV SCH (05:00)
[2020-10-20] MEDS ORDERED: SODIUM BICARBONATE 8.4% 150 MEQ in DEXTROSE 5% 1,000 ML IV SCH (06:30)
[2020-10-20] MEDS: PIPERACILLIN/TAZO 2.25 GM in SODIUM CHLORIDE 0.9% 50 ML IVPB SCH ×3 (07:54→18:46)
[2020-10-20] MEDS: SODIUM CHLORIDE FLUSH 10ML SYR IVF SCH ×2 (09:00→21:37)
[2020-10-20] MEDS: LINEZOLID 600 MG TABLET PO SCH ×2 (09:23→21:38)
[2020-10-20] MEDS: METHADONE 10 MG TABLET PO SCH (09:24)
[2020-10-20 10:36] LABS: MICROSCOPIC INDICATED
[2020-10-20 10:46] LABS: AMPHETAMINE SCREEN, URINE Positive (Negative); BARBITURATE SCREEN, URINE Negative (Negative); BENZODIAZEPINE SCREEN, URINE Negative (Negative); CANNABINOID SCREEN, URINE Negative (Negative); COCAINE SCREEN, URINE Negative (Negative); METHADONE SCREEN, URINE Positive (Negative); OPIATE SCREEN, URINE Negative (Negative)
[2020-10-20] MEDS ORDERED: INSULIN LISPRO 100 UNITS/ML, PEN MEDIUM DOSE SS SQ-INSULIN SCH (11:00)
[2020-10-20] MEDS: HEPARIN 5,000 UNITS/ML, 1ML IV PRN ×2 (11:45→19:16)
[2020-10-20] MEDS: INSULIN LISPRO 100 UNITS/ML, PEN SQ-INSULIN SCH ×3 (12:00→21:38)
[2020-10-20 13:33] VITALS: BP 104/74
[2020-10-20 20:08] VITALS: BP 99/69
[2020-10-21] MEDS: PIPERACILLIN/TAZO 2.25 GM in SODIUM CHLORIDE 0.9% 50 ML IVPB SCH ×3 (00:28→15:17)
[2020-10-21 01:26] LABS: BASOPHILS % (AUTO) 0 % (0-1); EOSINOPHILS % (AUTO) 1 % (1-7); LYMPHOCYTES % (AUTO) 8 % (22-44); MEAN CORPUSCULAR HEMOGLOBIN 23.6 pg (27.5-34.5); MEAN CORPUSCULAR HGB CONC 31.1 g/dL (33.2-36.2); MEAN PLATELET VOLUME 7.5 fL (7.4-10.4); MONOCYTES % (AUTO) 5 % (2-9); NEUTROPHILS % (AUTO) 85 % (42-75); PLATELET COUNT 208 x10^3/uL (130-400); RED BLOOD COUNT 5.16 x10^6/uL (4.38-5.82); RED CELL DISTRIBUTION WIDTH 20.1 % (9.4-14.8)
[2020-10-21 01:30] VITALS: BP 104/64
[2020-10-21 01:35] LABS: ALANINE AMINOTRANSFERASE 345 U/L (12-78); ALBUMIN 2.2 g/dL (3.4-5.0); ANION GAP 8 mmol/L (5-15); CALCIUM 7.2 mg/dL (8.5-10.1); CHLORIDE 104 mmol/L (98-107); CREATININE 2.14 mg/dL (0.7-1.3)
[2020-10-21 01:37] LABS: ALKALINE PHOSPHATASE 141 U/L (45-117); BILIRUBIN,TOTAL 1.1 mg/dL (0.2-1.0); TOTAL PROTEIN 7.6 g/dL (6.4-8.2)
[2020-10-21] MEDS: HEPARIN 5,000 UNITS/ML, 1ML IV PRN ×2 (01:57→11:17)
[2020-10-21] MEDS: INSULIN LISPRO 100 UNITS/ML, PEN SQ-INSULIN SCH ×6 (03:14→21:15)
[2020-10-21] MEDS ORDERED: SODIUM BICARBONATE 8.4% 150 MEQ in DEXTROSE 5% 1,000 ML IV SCH ×2 (03:30→06:30)
[2020-10-21] MEDS: HEPARIN 25,000 UNITS/250ML PMX 250 ML IV PRN ×2 (05:10→22:03)
[2020-10-21 08:40] VITALS: BP 115/78
[2020-10-21] MEDS: SODIUM CHLORIDE FLUSH 10ML SYR IVF SCH ×2 (10:00→21:00)
[2020-10-21] MEDS: LINEZOLID 600 MG TABLET PO SCH ×2 (10:19→21:14)
[2020-10-21] MEDS: METHADONE 10 MG TABLET PO SCH (10:19)
[2020-10-21] MEDS ORDERED: D5%-0.9% NACL 1,000 ML IV SCH (11:00)
[2020-10-21 16:10] VITALS: BP 100/65
[2020-10-21] MEDS: FERROUS SULFATE 325 MG TABLET PO SCH (18:14)
[2020-10-21 19:39] VITALS: BP 104/72
[2020-10-21] MEDS: PIPERACILLIN/TAZO 2.25 GM in DEXTROSE 5% 50 ML IVPB SCH (21:14)
[2020-10-22] MEDS: HEPARIN 5,000 UNITS/ML, 1ML IV PRN
[2020-10-22] MEDS: INSULIN LISPRO 100 UNITS/ML, PEN SQ-INSULIN SCH ×6 (00:01→20:52)
[2020-10-22 00:03] VITALS: BP 120/85
[2020-10-22] MEDS: PIPERACILLIN/TAZO 2.25 GM in DEXTROSE 5% 50 ML IVPB SCH ×2 (03:39→09:16)
[2020-10-22 07:04] LABS: BASOPHILS % (AUTO) 0 % (0-1); EOSINOPHILS % (AUTO) 1 % (1-7); LYMPHOCYTES % (AUTO) 15 % (22-44); MEAN CORPUSCULAR HEMOGLOBIN 23.3 pg (27.5-34.5); MEAN CORPUSCULAR HGB CONC 31.3 g/dL (33.2-36.2); MEAN PLATELET VOLUME 7.7 fL (7.4-10.4); MONOCYTES % (AUTO) 6 % (2-9); NEUTROPHILS % (AUTO) 77 % (42-75); PLATELET COUNT 183 x10^3/uL (130-400); RED BLOOD COUNT 4.56 x10^6/uL (4.38-5.82); RED CELL DISTRIBUTION WIDTH 20.1 % (9.4-14.8)
[2020-10-22 07:10] LABS: ALANINE AMINOTRANSFERASE 220 U/L (12-78); ALBUMIN 1.7 g/dL (3.4-5.0); ANION GAP 5 mmol/L (5-15); CALCIUM 7.1 mg/dL (8.5-10.1); CHLORIDE 105 mmol/L (98-107); CREATININE 1.45 mg/dL (0.7-1.3)
[2020-10-22 07:12] LABS: ALKALINE PHOSPHATASE 110 U/L (45-117); BILIRUBIN,TOTAL 0.7 mg/dL (0.2-1.0); CREATINE KINASE, TOTAL 59 U/L (39-308); TOTAL PROTEIN 6.3 g/dL (6.4-8.2)
[2020-10-22] MEDS: METHADONE 10 MG TABLET PO SCH (09:15)
[2020-10-22] MEDS: ZINC SULFATE 220 MG CAPSULE PO SCH (09:15)
[2020-10-22] MEDS: SODIUM CHLORIDE FLUSH 10ML SYR IVF SCH ×2 (09:15→20:54)
[2020-10-22] MEDS: FERROUS SULFATE 325 MG TABLET PO SCH ×2 (09:15→16:44)
[2020-10-22] MEDS: LINEZOLID 600 MG TABLET PO SCH ×2 (09:16→22:46)
[2020-10-22] MEDS: MEGESTROL 400 MG/10 ML PO SCH (09:16)
[2020-10-22 10:00] VITALS: BP 128/72
[2020-10-22] MEDS ORDERED: MAGNESIUM SULFATE PMX 2GM/50ML 50 ML IV ONE (10:00)
[2020-10-22] MEDS ORDERED: POTASSIUM PHOSPHATE 22 MEQ in SODIUM CHLORIDE 0.9% 500 ML IV ONE (10:00)
[2020-10-22 14:45] VITALS: BP 108/76
[2020-10-22] MEDS ORDERED: PIPERACILLIN/TAZO 4.5 GM in DEXTROSE 5% 100 ML IVPB SCH (15:00)
[2020-10-22] MEDS: MEROPENEM 1 GM in SODIUM CHLORIDE 0.9% 100 ML IV SCH (16:39)
[2020-10-22] MEDS: HEPARIN 5,000 UNITS/ML, 1ML SQ SCH (16:44)
[2020-10-22] MEDS: CARVEDILOL 3.125 MG TABLET PO SCH ×2 (18:00→18:38)
[2020-10-22 19:29] VITALS: BP 129/84
[2020-10-22] MEDS: OXYcodone IR 5MG TABLET PO PRN (22:47)
[2020-10-23] MEDS: INSULIN LISPRO 100 UNITS/ML, PEN SQ-INSULIN SCH ×5 (00:25→20:33)
[2020-10-23] MEDS: HEPARIN 5,000 UNITS/ML, 1ML SQ SCH ×4 (00:29→23:30)
[2020-10-23 01:49] VITALS: BP 130/91
[2020-10-23] MEDS: MEROPENEM 1 GM in SODIUM CHLORIDE 0.9% 100 ML IV SCH ×3 (03:28→20:18)
[2020-10-23] MEDS: OXYcodone IR 5MG TABLET PO PRN ×3 (04:26→20:46)
[2020-10-23 05:29] LABS: BASOPHILS % (AUTO) 0 % (0-1); EOSINOPHILS % (AUTO) 1 % (1-7); LYMPHOCYTES % (AUTO) 15 % (22-44); MEAN CORPUSCULAR HEMOGLOBIN 23.3 pg (27.5-34.5); MEAN PLATELET VOLUME 7.3 fL (7.4-10.4); MONOCYTES % (AUTO) 8 % (2-9); NEUTROPHILS % (AUTO) 76 % (42-75); PLATELET COUNT 209 x10^3/uL (130-400); RED BLOOD COUNT 4.92 x10^6/uL (4.38-5.82); RED CELL DISTRIBUTION WIDTH 20.3 % (9.4-14.8)
[2020-10-23 05:37] LABS: ALBUMIN 1.6 g/dL (3.4-5.0); ANION GAP 4 mmol/L (5-15); CALCIUM 7.2 mg/dL (8.5-10.1); CHLORIDE 108 mmol/L (98-107)
[2020-10-23 05:40] LABS: ALANINE AMINOTRANSFERASE 185 U/L (12-78); ALKALINE PHOSPHATASE 107 U/L (45-117); BILIRUBIN,TOTAL 0.6 mg/dL (0.2-1.0); CREATININE 0.97 mg/dL (0.7-1.3); TOTAL PROTEIN 6.4 g/dL (6.4-8.2)
[2020-10-23 07:55] VITALS: BP 150/100
[2020-10-23] MEDS: FERROUS SULFATE 325 MG TABLET PO SCH ×2 (08:00→20:19)
[2020-10-23] MEDS: MEGESTROL 400 MG/10 ML PO SCH (09:00)
[2020-10-23] MEDS: K-PHOS NEUTRAL 250MG TAB PO SCH ×2 (09:00→20:19)
[2020-10-23] MEDS: ZINC SULFATE 220 MG CAPSULE PO SCH (09:00)
[2020-10-23] MEDS: SODIUM CHLORIDE FLUSH 10ML SYR IVF SCH ×2 (09:00→20:18)
[2020-10-23] MEDS: LINEZOLID 600 MG TABLET PO SCH ×2 (09:00→20:19)
[2020-10-23] MEDS: LISINOPRIL 5 MG TABLET PO SCH (09:00)
[2020-10-23] MEDS: METHADONE 10 MG TABLET PO SCH (10:09)
[2020-10-23] MEDS: CARVEDILOL 3.125 MG TABLET PO SCH ×2 (10:15→20:19)
[2020-10-23] MEDS: ASPIRIN 81 MG TABLET EC PO SCH (10:15)
[2020-10-23 13:28] VITALS: BP 119/82
[2020-10-23] MEDS ORDERED: FUROSEMIDE 40 MG/4 ML IV ONE (15:00)
[2020-10-23 15:40] VITALS: BP 111/77
[2020-10-23 19:34] VITALS: BP 112/82
[2020-10-23 22:54] VITALS: BP 109/65
[2020-10-24 00:57] VITALS: BP 110/70
[2020-10-24] MEDS: MEROPENEM 1 GM in SODIUM CHLORIDE 0.9% 100 ML IV SCH ×3 (03:56→20:21)
[2020-10-24] MEDS: OXYcodone IR 5MG TABLET PO PRN ×2 (03:57→18:48)
[2020-10-24] MEDS: ASPIRIN 81 MG TABLET EC PO SCH (05:33)
[2020-10-24] MEDS: CARVEDILOL 3.125 MG TABLET PO SCH ×2 (05:34→18:31)
[2020-10-24 06:04] LABS: CALCIUM 7.5 mg/dL (8.5-10.1); CHLORIDE 109 mmol/L (98-107); CREATININE 0.94 mg/dL (0.7-1.3)
[2020-10-24 06:11] LABS: ANION GAP 2 mmol/L (5-15)
[2020-10-24 07:01] VITALS: BP 119/77
[2020-10-24] MEDS: LINEZOLID 600 MG TABLET PO SCH ×2 (08:13→20:21)
[2020-10-24] MEDS: K-PHOS NEUTRAL 250MG TAB PO SCH ×2 (08:13→20:21)
[2020-10-24] MEDS: ZINC SULFATE 220 MG CAPSULE PO SCH (08:13)
[2020-10-24] MEDS: FERROUS SULFATE 325 MG TABLET PO SCH ×2 (08:13→18:30)
[2020-10-24] MEDS: HEPARIN 5,000 UNITS/ML, 1ML SQ SCH ×2 (08:13→18:30)
[2020-10-24] MEDS: LISINOPRIL 5 MG TABLET PO SCH (08:14)
[2020-10-24] MEDS: METHADONE 10 MG TABLET PO SCH (08:14)
[2020-10-24] MEDS: INSULIN LISPRO 100 UNITS/ML, PEN SQ-INSULIN SCH ×4 (08:15→20:22)
[2020-10-24] MEDS: SODIUM CHLORIDE FLUSH 10ML SYR IVF SCH ×2 (08:15→21:00)
[2020-10-24 08:42] LABS: HCT (SEDRATE) 37.5 % (39.2-51.8)
[2020-10-24] MEDS: MEGESTROL 400 MG/10 ML PO SCH (10:50)
[2020-10-24] MEDS: SPIRONOLACTONE 25 MG TABLET PO SCH (10:50)
[2020-10-24] MEDS ORDERED: SENNA/DOCUSATE TABLET PO PRN (11:00)
[2020-10-24] MEDS ORDERED: POLYETHYLENE GLYCOL 17 GM PACKET PO PRN (11:00)
[2020-10-24 13:15] VITALS: BP 89/53
[2020-10-24 15:15] VITALS: BP 95/55
[2020-10-24 20:15] VITALS: BP 111/77
[2020-10-24] MEDS: ACETAMINOPHEN 325 MG TABLET PO PRN (20:21)
[2020-10-24] MEDS: ZOLPIDEM 5MG TABLET PO PRN (20:21)
[2020-10-25] MEDS: OXYcodone IR 5MG TABLET PO PRN ×4 (00:22→20:23)
[2020-10-25] MEDS: HEPARIN 5,000 UNITS/ML, 1ML SQ SCH ×3 (00:22→16:20)
[2020-10-25 01:20] VITALS: BP 101/66
[2020-10-25] MEDS: MEROPENEM 1 GM in SODIUM CHLORIDE 0.9% 100 ML IV SCH ×3 (04:26→20:21)
[2020-10-25] MEDS: CARVEDILOL 3.125 MG TABLET PO SCH ×2 (05:49→18:00)
[2020-10-25] MEDS: ASPIRIN 81 MG TABLET EC PO SCH (05:49)
[2020-10-25 08:04] VITALS: BP 88/59
[2020-10-25] MEDS: ZINC SULFATE 220 MG CAPSULE PO SCH (09:00)
[2020-10-25] MEDS: DAPTOMYCIN 500 MG in SODIUM CHLORIDE 0.9% 100 ML IVPB SCH (09:14)
[2020-10-25] MEDS: INSULIN LISPRO 100 UNITS/ML, PEN SQ-INSULIN SCH ×4 (09:14→20:47)
[2020-10-25] MEDS: K-PHOS NEUTRAL 250MG TAB PO SCH ×2 (09:15→20:23)
[2020-10-25] MEDS: METHADONE 10 MG TABLET PO SCH (09:15)
[2020-10-25] MEDS: FERROUS SULFATE 325 MG TABLET PO SCH ×2 (09:15→16:20)
[2020-10-25] MEDS: LISINOPRIL 5 MG TABLET PO SCH (09:15)
[2020-10-25] MEDS: SPIRONOLACTONE 25 MG TABLET PO SCH (09:15)
[2020-10-25] MEDS: SODIUM CHLORIDE FLUSH 10ML SYR IVF SCH ×2 (09:16→20:22)
[2020-10-25 09:21] VITALS: BP 109/74
[2020-10-25] MEDS: MEGESTROL 400 MG/10 ML PO SCH (10:46)
[2020-10-25 12:36] VITALS: BP 98/62
[2020-10-25 20:20] VITALS: BP 109/77
[2020-10-25] MEDS: ZOLPIDEM 5MG TABLET PO PRN (20:23)
[2020-10-26] MEDS: HEPARIN 5,000 UNITS/ML, 1ML SQ SCH ×3 (00:29→16:21)
[2020-10-26] MEDS: OXYcodone IR 5MG TABLET PO PRN ×3 (00:30→20:01)
[2020-10-26 00:42] VITALS: BP 127/82
[2020-10-26] MEDS: METHOCARBAMOL 500 MG TABLET PO PRN ×2 (03:00→16:21)
[2020-10-26] MEDS: MEROPENEM 1 GM in SODIUM CHLORIDE 0.9% 100 ML IV SCH ×3 (03:56→19:49)
[2020-10-26 05:21] VITALS: BP 123/87
[2020-10-26] MEDS: ASPIRIN 81 MG TABLET EC PO SCH (05:22)
[2020-10-26] MEDS: CARVEDILOL 3.125 MG TABLET PO SCH ×2 (05:22→16:21)
[2020-10-26 06:30] VITALS: BP 114/84
[2020-10-26 07:28] LABS: CALCIUM 7.9 mg/dL (8.5-10.1); CHLORIDE 106 mmol/L (98-107); CREATININE 0.92 mg/dL (0.7-1.3)
[2020-10-26 07:36] LABS: ANION GAP 3 mmol/L (5-15)
[2020-10-26 07:55] LABS: BASOPHILS % (AUTO) 1 % (0-1); EOSINOPHILS % (AUTO) 2 % (1-7); LYMPHOCYTES % (AUTO) 23 % (22-44); MEAN CORPUSCULAR HEMOGLOBIN 23.6 pg (27.5-34.5); MEAN CORPUSCULAR HGB CONC 30.7 g/dL (33.2-36.2); MEAN PLATELET VOLUME 7.1 fL (7.4-10.4); MONOCYTES % (AUTO) 7 % (2-9); NEUTROPHILS % (AUTO) 67 % (42-75); PLATELET COUNT 210 x10^3/uL (130-400); RED BLOOD COUNT 4.77 x10^6/uL (4.38-5.82); RED CELL DISTRIBUTION WIDTH 20.9 % (9.4-14.8)
[2020-10-26 07:56] LABS: HEMOGRAM NOTE RECHECKED
[2020-10-26] MEDS: INSULIN LISPRO 100 UNITS/ML, PEN SQ-INSULIN SCH ×4 (07:57→19:55)
[2020-10-26] MEDS: METHADONE 10 MG TABLET PO SCH (07:57)
[2020-10-26] MEDS: ZINC SULFATE 220 MG CAPSULE PO SCH (07:57)
[2020-10-26] MEDS: metFORMIN 850 MG TABLET PO SCH ×2 (07:57→16:21)
[2020-10-26] MEDS: SPIRONOLACTONE 25 MG TABLET PO SCH (07:58)
[2020-10-26] MEDS: FUROSEMIDE 40 MG/4 ML IV SCH (07:58)
[2020-10-26] MEDS: DAPTOMYCIN 500 MG in SODIUM CHLORIDE 0.9% 100 ML IVPB SCH (07:58)
[2020-10-26] MEDS: FERROUS SULFATE 325 MG TABLET PO SCH ×2 (07:58→16:22)
[2020-10-26] MEDS: LISINOPRIL 5 MG TABLET PO SCH (07:58)
[2020-10-26] MEDS: MEGESTROL 400 MG/10 ML PO SCH (08:00)
[2020-10-26] MEDS: K-PHOS NEUTRAL 250MG TAB PO SCH ×2 (08:01→20:00)
[2020-10-26] MEDS: ACETAMINOPHEN 325 MG TABLET PO PRN (08:01)
[2020-10-26] MEDS: SODIUM CHLORIDE FLUSH 10ML SYR IVF SCH ×2 (08:13→19:49)
[2020-10-26 14:01] VITALS: BP 112/74
[2020-10-26 19:00] VITALS: BP 118/80
[2020-10-27] MEDS: METHOCARBAMOL 500 MG TABLET PO PRN (00:02)
[2020-10-27] MEDS: HEPARIN 5,000 UNITS/ML, 1ML SQ SCH ×4 (00:03→23:36)
[2020-10-27 01:53] VITALS: BP 103/65
[2020-10-27] MEDS: MEROPENEM 1 GM in SODIUM CHLORIDE 0.9% 100 ML IV SCH ×3 (03:33→19:43)
[2020-10-27] MEDS: ASPIRIN 81 MG TABLET EC PO SCH (05:44)
[2020-10-27] MEDS: OXYcodone IR 5MG TABLET PO PRN ×2 (05:44→23:39)
[2020-10-27] MEDS: CARVEDILOL 3.125 MG TABLET PO SCH ×3 (05:44→17:50)
[2020-10-27] MEDS: INSULIN LISPRO 100 UNITS/ML, PEN SQ-INSULIN SCH ×4 (07:00→19:53)
[2020-10-27 07:08] VITALS: BP 107/71
[2020-10-27] MEDS: metFORMIN 850 MG TABLET PO SCH ×2 (08:11→16:03)
[2020-10-27] MEDS: FERROUS SULFATE 325 MG TABLET PO SCH ×2 (08:11→16:03)
[2020-10-27] MEDS: SPIRONOLACTONE 25 MG TABLET PO SCH (08:12)
[2020-10-27] MEDS: SODIUM CHLORIDE FLUSH 10ML SYR IVF SCH ×2 (08:12→21:10)
[2020-10-27] MEDS: FUROSEMIDE 40 MG/4 ML IV SCH (08:12)
[2020-10-27] MEDS: K-PHOS NEUTRAL 250MG TAB PO SCH ×2 (08:16→21:10)
[2020-10-27] MEDS: LISINOPRIL 5 MG TABLET PO SCH (08:16)
[2020-10-27] MEDS: METHADONE 10 MG TABLET PO SCH (08:16)
[2020-10-27] MEDS: ZINC SULFATE 220 MG CAPSULE PO SCH (08:16)
[2020-10-27] MEDS: DAPTOMYCIN 500 MG in SODIUM CHLORIDE 0.9% 100 ML IVPB SCH (09:14)
[2020-10-27] MEDS: MEGESTROL 400 MG/10 ML PO SCH (11:22)
[2020-10-27 14:07] VITALS: BP 117/81
[2020-10-27 18:55] VITALS: BP 104/73
[2020-10-28 01:07] VITALS: BP 116/81
[2020-10-28] MEDS: METHOCARBAMOL 500 MG TABLET PO PRN (01:20)
[2020-10-28] MEDS: MEROPENEM 1 GM in SODIUM CHLORIDE 0.9% 100 ML IV SCH ×3 (03:52→20:42)
[2020-10-28] MEDS: OXYcodone IR 5MG TABLET PO PRN ×2 (03:57→20:49)
[2020-10-28 05:17] VITALS: BP 108/73
[2020-10-28] MEDS: ASPIRIN 81 MG TABLET EC PO SCH ×2 (05:18→05:19)
[2020-10-28] MEDS: CARVEDILOL 3.125 MG TABLET PO SCH ×3 (05:18→17:38)
[2020-10-28] MEDS: INSULIN LISPRO 100 UNITS/ML, PEN SQ-INSULIN SCH ×4 (07:00→20:37)
[2020-10-28] MEDS: SODIUM CHLORIDE FLUSH 10ML SYR IVF SCH ×2 (08:13→20:48)
[2020-10-28] MEDS: FUROSEMIDE 40 MG/4 ML IV SCH (08:13)
[2020-10-28] MEDS: HEPARIN 5,000 UNITS/ML, 1ML SQ SCH ×2 (08:13→16:30)
[2020-10-28 08:20] VITALS: BP 117/81
[2020-10-28] MEDS: FERROUS SULFATE 325 MG TABLET PO SCH ×3 (08:34→16:39)
[2020-10-28] MEDS: K-PHOS NEUTRAL 250MG TAB PO SCH ×2 (08:34→20:48)
[2020-10-28] MEDS: metFORMIN 850 MG TABLET PO SCH ×3 (08:34→16:39)
[2020-10-28] MEDS: METHADONE 10 MG TABLET PO SCH (08:34)
[2020-10-28] MEDS: LISINOPRIL 5 MG TABLET PO SCH (08:35)
[2020-10-28] MEDS: ZINC SULFATE 220 MG CAPSULE PO SCH (08:35)
[2020-10-28] MEDS: SPIRONOLACTONE 25 MG TABLET PO SCH (08:35)
[2020-10-28] MEDS: DAPTOMYCIN 500 MG in SODIUM CHLORIDE 0.9% 100 ML IVPB SCH (09:05)
[2020-10-28] MEDS: MEGESTROL 400 MG/10 ML PO SCH (09:08)
[2020-10-28 14:33] VITALS: BP 118/80
[2020-10-28 19:15] VITALS: BP 113/76
[2020-10-28] MEDS: ZOLPIDEM 5MG TABLET PO PRN (20:49)
[2020-10-29 01:31] VITALS: BP 102/66
[2020-10-29] MEDS: HEPARIN 5,000 UNITS/ML, 1ML SQ SCH ×3 (01:47→16:35)
[2020-10-29] MEDS: OXYcodone IR 5MG TABLET PO PRN ×3 (03:24→20:27)
[2020-10-29] MEDS: MEROPENEM 1 GM in SODIUM CHLORIDE 0.9% 100 ML IV SCH ×3 (04:26→20:26)
[2020-10-29 05:35] VITALS: BP 119/84
[2020-10-29] MEDS: ASPIRIN 81 MG TABLET EC PO SCH ×2 (05:43→05:50)
[2020-10-29] MEDS: CARVEDILOL 3.125 MG TABLET PO SCH ×3 (05:43→17:25)
[2020-10-29 05:48] LABS: BASOPHILS % (AUTO) 1 % (0-1); EOSINOPHILS % (AUTO) 1 % (1-7); LYMPHOCYTES % (AUTO) 23 % (22-44); MEAN CORPUSCULAR HEMOGLOBIN 23.6 pg (27.5-34.5); MEAN CORPUSCULAR HGB CONC 30.8 g/dL (33.2-36.2); MEAN PLATELET VOLUME 7.4 fL (7.4-10.4); MONOCYTES % (AUTO) 9 % (2-9); NEUTROPHILS % (AUTO) 67 % (42-75); PLATELET COUNT 177 x10^3/uL (130-400); RED BLOOD COUNT 4.37 x10^6/uL (4.38-5.82); RED CELL DISTRIBUTION WIDTH 21.1 % (9.4-14.8)
[2020-10-29 06:04] LABS: ALBUMIN 1.7 g/dL (3.4-5.0); CALCIUM 8.2 mg/dL (8.5-10.1); CHLORIDE 101 mmol/L (98-107); CREATININE 0.86 mg/dL (0.7-1.3)
[2020-10-29 06:40] LABS: ANION GAP 0 mmol/L (5-15)
[2020-10-29 07:58] VITALS: BP 125/74
[2020-10-29] MEDS: metFORMIN 850 MG TABLET PO SCH ×2 (08:00→17:00)
[2020-10-29] MEDS: K-PHOS NEUTRAL 250MG TAB PO SCH (08:34)
[2020-10-29] MEDS: ZINC SULFATE 220 MG CAPSULE PO SCH (08:34)
[2020-10-29] MEDS: FERROUS SULFATE 325 MG TABLET PO SCH ×2 (08:34→17:24)
[2020-10-29] MEDS: METHADONE 10 MG TABLET PO SCH (08:34)
[2020-10-29] MEDS: FUROSEMIDE 40 MG/4 ML IV SCH (08:34)
[2020-10-29] MEDS: SODIUM CHLORIDE FLUSH 10ML SYR IVF SCH ×2 (08:38→20:27)
[2020-10-29] MEDS: SPIRONOLACTONE 25 MG TABLET PO SCH (08:39)
[2020-10-29] MEDS: LISINOPRIL 5 MG TABLET PO SCH (08:39)
[2020-10-29] MEDS: MEGESTROL 400 MG/10 ML PO SCH (08:39)
[2020-10-29] MEDS ORDERED: FUROSEMIDE 40 MG/4 ML IV ONE (09:00)
[2020-10-29] MEDS: INSULIN LISPRO 100 UNITS/ML, PEN SQ-INSULIN SCH ×4 (09:14→20:45)
[2020-10-29] MEDS: DAPTOMYCIN 500 MG in SODIUM CHLORIDE 0.9% 100 ML IVPB SCH (09:19)
[2020-10-29 11:58] VITALS: BP 109/71
[2020-10-29 18:54] VITALS: BP 113/76
[2020-10-29] MEDS: ACETAMINOPHEN 325 MG TABLET PO PRN (20:26)
[2020-10-29 20:30] VITALS: BP 111/78
[2020-10-30] MEDS: ACETAMINOPHEN 325 MG TABLET PO PRN ×2 (00:24→05:27)
[2020-10-30] MEDS: HEPARIN 5,000 UNITS/ML, 1ML SQ SCH ×5 (00:24→17:47)
[2020-10-30] MEDS: OXYcodone IR 5MG TABLET PO PRN ×2 (00:25→05:27)
[2020-10-30 00:59] VITALS: BP 119/84
[2020-10-30] MEDS: MEROPENEM 1 GM in SODIUM CHLORIDE 0.9% 100 ML IV SCH ×3 (04:22→20:12)
[2020-10-30] MEDS: CARVEDILOL 3.125 MG TABLET PO SCH ×2 (05:27→18:00)
[2020-10-30] MEDS: ASPIRIN 81 MG TABLET EC PO SCH ×2 (05:27→05:33)
[2020-10-30] MEDS: INSULIN LISPRO 100 UNITS/ML, PEN SQ-INSULIN SCH ×5 (07:00→21:00)
[2020-10-30] MEDS: metFORMIN 850 MG TABLET PO SCH ×3 (08:00→17:00)
[2020-10-30] MEDS: SPIRONOLACTONE 25 MG TABLET PO SCH ×2 (09:00→09:56)
[2020-10-30] MEDS: MEGESTROL 400 MG/10 ML PO SCH ×2 (09:00→09:57)
[2020-10-30] MEDS: LISINOPRIL 5 MG TABLET PO SCH ×2 (09:00→09:56)
[2020-10-30 09:20] VITALS: BP 116/81
[2020-10-30] MEDS: DAPTOMYCIN 500 MG in SODIUM CHLORIDE 0.9% 100 ML IVPB SCH (09:55)
[2020-10-30] MEDS: METHADONE 10 MG TABLET PO SCH (09:55)
[2020-10-30] MEDS: FERROUS SULFATE 325 MG TABLET PO SCH ×2 (09:56→17:00)
[2020-10-30] MEDS: FUROSEMIDE 40 MG/4 ML IV SCH (09:57)
[2020-10-30] MEDS: ZINC SULFATE 220 MG CAPSULE PO SCH (09:57)
[2020-10-30] MEDS: SODIUM CHLORIDE FLUSH 10ML SYR IVF SCH ×2 (09:58→21:00)
[2020-10-30] MEDS ORDERED: LIDOCAINE-MPF 1%, 5ML ONE (15:27)
[2020-10-30 16:37] VITALS: BP 106/70
[2020-10-30 19:41] VITALS: BP 118/69
[2020-10-31 01:01] VITALS: BP 108/75
[2020-10-31] MEDS: HEPARIN 5,000 UNITS/ML, 1ML SQ SCH ×3 (02:58→19:38)
[2020-10-31] MEDS: OXYcodone IR 5MG TABLET PO PRN ×3 (03:51→20:17)
[2020-10-31] MEDS: MEROPENEM 1 GM in SODIUM CHLORIDE 0.9% 100 ML IV SCH ×3 (03:53→20:09)
[2020-10-31] MEDS: ASPIRIN 81 MG TABLET EC PO SCH ×2 (05:32→05:48)
[2020-10-31] MEDS: CARVEDILOL 3.125 MG TABLET PO SCH ×3 (05:32→17:00)
[2020-10-31] MEDS: INSULIN LISPRO 100 UNITS/ML, PEN SQ-INSULIN SCH ×4 (07:42→20:09)
[2020-10-31] MEDS: FERROUS SULFATE 325 MG TABLET PO SCH ×2 (07:44→16:59)
[2020-10-31] MEDS: METHADONE 10 MG TABLET PO SCH (07:45)
[2020-10-31] MEDS: FUROSEMIDE 40 MG/4 ML IV SCH (07:46)
[2020-10-31] MEDS: ZINC SULFATE 220 MG CAPSULE PO SCH (07:46)
[2020-10-31] MEDS: SODIUM CHLORIDE FLUSH 10ML SYR IVF SCH ×2 (07:47→20:10)
[2020-10-31] MEDS: metFORMIN 850 MG TABLET PO SCH ×2 (08:00→17:00)
[2020-10-31] MEDS: MEGESTROL 400 MG/10 ML PO SCH (09:00)
[2020-10-31] MEDS: LISINOPRIL 5 MG TABLET PO SCH (09:00)
[2020-10-31] MEDS ORDERED: DEXTROSE 5%, 50ML IV SCH (10:00)
[2020-10-31 10:09] VITALS: BP 116/89
[2020-10-31] MEDS: SPIRONOLACTONE 25 MG TABLET PO SCH (10:54)
[2020-10-31] MEDS: DAPTOMYCIN 500 MG in SODIUM CHLORIDE 0.9% 100 ML IVPB SCH (10:54)
[2020-10-31] MEDS ORDERED: DALBAVANCIN HCL 1,500 MG in DEXTROSE 5% 500 ML IV ONE (11:00)
[2020-10-31 13:53] VITALS: BP 104/67
[2020-10-31 19:12] VITALS: BP 105/67
[2020-11-01 00:34] VITALS: BP 142/56
[2020-11-01] MEDS: OXYcodone IR 5MG TABLET PO PRN ×2 (02:11→20:12)
[2020-11-01] MEDS: HEPARIN 5,000 UNITS/ML, 1ML SQ SCH ×3 (03:50→19:46)
[2020-11-01] MEDS: MEROPENEM 1 GM in SODIUM CHLORIDE 0.9% 100 ML IV SCH ×3 (03:50→20:11)
[2020-11-01 04:27] LABS: CALCIUM 7.7 mg/dL (8.5-10.1); CHLORIDE 100 mmol/L (98-107); CREATININE 0.58 mg/dL (0.7-1.3)
[2020-11-01 04:31] LABS: ANION GAP 0 mmol/L (5-15)
[2020-11-01] MEDS: ASPIRIN 81 MG TABLET EC PO SCH (06:00)
[2020-11-01] MEDS: CARVEDILOL 3.125 MG TABLET PO SCH ×2 (06:00→19:46)
[2020-11-01 08:00] VITALS: BP 115/82
[2020-11-01] MEDS: ZINC SULFATE 220 MG CAPSULE PO SCH (08:25)
[2020-11-01] MEDS: SPIRONOLACTONE 25 MG TABLET PO SCH (08:25)
[2020-11-01] MEDS: METHADONE 10 MG TABLET PO SCH (08:25)
[2020-11-01] MEDS: metFORMIN 850 MG TABLET PO SCH ×2 (08:26→19:45)
[2020-11-01] MEDS: LISINOPRIL 5 MG TABLET PO SCH (08:26)
[2020-11-01] MEDS: INSULIN LISPRO 100 UNITS/ML, PEN SQ-INSULIN SCH ×4 (08:27→20:13)
[2020-11-01] MEDS: SODIUM CHLORIDE FLUSH 10ML SYR IVF SCH ×2 (08:27→20:13)
[2020-11-01] MEDS: FUROSEMIDE 40 MG TABLET PO SCH ×2 (09:00→20:12)
[2020-11-01] MEDS: MEGESTROL 400 MG/10 ML PO SCH (09:00)
[2020-11-01] MEDS ORDERED: LIDOCAINE 1%, 20ML ONE (10:00)
[2020-11-01] MEDS: DAPTOMYCIN 500 MG in SODIUM CHLORIDE 0.9% 100 ML IVPB SCH (10:49)
[2020-11-01 12:19] VITALS: BP 115/81
[2020-11-01] MEDS: ATORVASTATIN 40 MG TABLET PO SCH (20:13)
[2020-11-02] MEDS: MEROPENEM 1 GM in SODIUM CHLORIDE 0.9% 100 ML IV SCH ×3 (03:38→20:40)
[2020-11-02] MEDS: HEPARIN 5,000 UNITS/ML, 1ML SQ SCH ×3 (03:38→20:40)
[2020-11-02] MEDS: OXYcodone IR 5MG TABLET PO PRN ×3 (03:39→20:22)
[2020-11-02 04:35] LABS: ALANINE AMINOTRANSFERASE 43 U/L (12-78); ALBUMIN 1.8 g/dL (3.4-5.0); ANION GAP 1 mmol/L (5-15); CALCIUM 7.7 mg/dL (8.5-10.1); CHLORIDE 99 mmol/L (98-107)
[2020-11-02 04:43] LABS: ALKALINE PHOSPHATASE 73 U/L (45-117); BASOPHILS % (AUTO) 1 % (0-1); BILIRUBIN,TOTAL 0.3 mg/dL (0.2-1.0); CREATINE KINASE, TOTAL 23 U/L (39-308); CREATININE 0.85 mg/dL (0.7-1.3); EOSINOPHILS % (AUTO) 1 % (1-7); LYMPHOCYTES % (AUTO) 13 % (22-44); MEAN CORPUSCULAR HEMOGLOBIN 24.2 pg (27.5-34.5); MEAN CORPUSCULAR HGB CONC 31.5 g/dL (33.2-36.2); MEAN PLATELET VOLUME 7.7 fL (7.4-10.4); MONOCYTES % (AUTO) 6 % (2-9); NEUTROPHILS % (AUTO) 79 % (42-75); PLATELET COUNT 223 x10^3/uL (130-400); RED BLOOD COUNT 4.05 x10^6/uL (4.38-5.82); RED CELL DISTRIBUTION WIDTH 20.9 % (9.4-14.8); TOTAL PROTEIN 7.1 g/dL (6.4-8.2)
[2020-11-02 04:44] LABS: HCT (SEDRATE) 30.7 % (39.2-51.8)
[2020-11-02 05:25] VITALS: BP 105/72
[2020-11-02] MEDS: ASPIRIN 81 MG TABLET EC PO SCH (05:26)
[2020-11-02] MEDS: CARVEDILOL 3.125 MG TABLET PO SCH ×2 (05:26→18:02)
[2020-11-02] MEDS: INSULIN LISPRO 100 UNITS/ML, PEN SQ-INSULIN SCH ×4 (07:00→20:40)
[2020-11-02 07:11] VITALS: BP 113/78
[2020-11-02] MEDS: ZINC SULFATE 220 MG CAPSULE PO SCH (08:06)
[2020-11-02] MEDS: metFORMIN 850 MG TABLET PO SCH ×2 (08:07→18:01)
[2020-11-02] MEDS: FUROSEMIDE 40 MG TABLET PO SCH ×2 (08:07→20:38)
[2020-11-02] MEDS: METHADONE 10 MG TABLET PO SCH (08:07)
[2020-11-02] MEDS: CALCIUM/VITAMIN D3 250-125 TABLET PO SCH ×2 (08:09→20:39)
[2020-11-02] MEDS: SODIUM CHLORIDE FLUSH 10ML SYR IVF SCH ×2 (08:10→20:40)
[2020-11-02] MEDS: DAPTOMYCIN 500 MG in SODIUM CHLORIDE 0.9% 100 ML IVPB SCH (12:21)
[2020-11-02 12:38] VITALS: BP 107/73
[2020-11-02 18:45] VITALS: BP 112/68
[2020-11-02] MEDS: ATORVASTATIN 40 MG TABLET PO SCH (20:38)
[2020-11-03] MEDS: OXYcodone IR 5MG TABLET PO PRN ×3 (00:45→19:17)
[2020-11-03 01:00] VITALS: BP 115/72
[2020-11-03] MEDS: MEROPENEM 1 GM in SODIUM CHLORIDE 0.9% 100 ML IV SCH ×3 (05:06→20:36)
[2020-11-03] MEDS: HEPARIN 5,000 UNITS/ML, 1ML SQ SCH ×3 (05:09→20:36)
[2020-11-03] MEDS: ASPIRIN 81 MG TABLET EC PO SCH (05:13)
[2020-11-03] MEDS: CARVEDILOL 3.125 MG TABLET PO SCH ×2 (05:13→17:22)
[2020-11-03 05:57] LABS: ANION GAP 1 mmol/L (5-15); CHLORIDE 98 mmol/L (98-107)
[2020-11-03 06:31] VITALS: BP 110/72
[2020-11-03] MEDS: ZINC SULFATE 220 MG CAPSULE PO SCH (07:56)
[2020-11-03] MEDS: METHADONE 10 MG TABLET PO SCH (07:56)
[2020-11-03] MEDS: metFORMIN 850 MG TABLET PO SCH ×2 (07:57→17:21)
[2020-11-03] MEDS: FERROUS SULFATE 325 MG TABLET PO SCH (08:00)
[2020-11-03] MEDS: CALCIUM/VITAMIN D3 250-125 TABLET PO SCH ×2 (08:00→20:36)
[2020-11-03] MEDS ORDERED: FUROSEMIDE 40 MG TABLET PO SCH (09:00)
[2020-11-03] MEDS: SODIUM CHLORIDE FLUSH 10ML SYR IVF SCH ×2 (09:29→20:37)
[2020-11-03] MEDS: INSULIN LISPRO 100 UNITS/ML, PEN SQ-INSULIN SCH ×4 (09:30→20:36)
[2020-11-03] MEDS: DAPTOMYCIN 500 MG in SODIUM CHLORIDE 0.9% 100 ML IVPB SCH (10:04)
[2020-11-03 12:56] VITALS: BP 106/69
[2020-11-03 18:56] VITALS: BP 112/77
[2020-11-03] MEDS: ATORVASTATIN 40 MG TABLET PO SCH (20:36)
[2020-11-03] MEDS: ONDANSETRON 2MG/ML, 2ML IVPush PRN (21:58)
[2020-11-04 00:57] VITALS: BP 101/60
[2020-11-04] MEDS: HEPARIN 5,000 UNITS/ML, 1ML SQ SCH ×3 (04:03→20:26)
[2020-11-04] MEDS: ONDANSETRON 2MG/ML, 2ML IVPush PRN (04:03)
[2020-11-04] MEDS: MEROPENEM 1 GM in SODIUM CHLORIDE 0.9% 100 ML IV SCH ×3 (04:50→22:17)
[2020-11-04] MEDS: CARVEDILOL 3.125 MG TABLET PO SCH (05:53)
[2020-11-04] MEDS: ASPIRIN 81 MG TABLET EC PO SCH (05:53)
[2020-11-04] MEDS: INSULIN LISPRO 100 UNITS/ML, PEN SQ-INSULIN SCH ×4 (07:00→20:26)
[2020-11-04] MEDS: metFORMIN 850 MG TABLET PO SCH ×2 (08:23→17:28)
[2020-11-04] MEDS: METHADONE 10 MG TABLET PO SCH (08:23)
[2020-11-04] MEDS: ZINC SULFATE 220 MG CAPSULE PO SCH (08:23)
[2020-11-04] MEDS: FUROSEMIDE 20 MG TABLET PO SCH (08:24)
[2020-11-04] MEDS: SODIUM CHLORIDE FLUSH 10ML SYR IVF SCH ×2 (08:27→20:28)
[2020-11-04] MEDS: CALCIUM/VITAMIN D3 250-125 TABLET PO SCH ×3 (08:28→20:28)
[2020-11-04 08:36] VITALS: BP 113/78
[2020-11-04] MEDS ORDERED: METHADONE 10 MG TABLET PO SCH (09:00)
[2020-11-04 09:46] LABS: CALCIUM 8.2 mg/dL (8.5-10.1); CREATININE 0.66 mg/dL (0.7-1.3)
[2020-11-04 10:05] LABS: ANION GAP 3 mmol/L (5-15); CHLORIDE 99 mmol/L (98-107)
[2020-11-04] MEDS: DAPTOMYCIN 500 MG in SODIUM CHLORIDE 0.9% 100 ML IVPB SCH (11:42)
[2020-11-04 14:25] VITALS: BP 111/77
[2020-11-04] MEDS: ACETAMINOPHEN 325 MG TABLET PO PRN (16:11)
[2020-11-04] MEDS: CARVEDILOL 12.5 MG TABLET PO SCH (17:29)
[2020-11-04 18:56] VITALS: BP 103/78
[2020-11-04] MEDS: ATORVASTATIN 40 MG TABLET PO SCH (20:25)
[2020-11-04] MEDS: OXYcodone IR 5MG TABLET PO PRN (22:21)
[2020-11-05 02:38] VITALS: BP 108/72
[2020-11-05] MEDS: HEPARIN 5,000 UNITS/ML, 1ML SQ SCH ×3 (04:09→20:00)
[2020-11-05] MEDS: OXYcodone IR 5MG TABLET PO PRN ×4 (04:10→21:18)
[2020-11-05] MEDS: CARVEDILOL 12.5 MG TABLET PO SCH ×3 (05:59→17:25)
[2020-11-05] MEDS: ASPIRIN 81 MG TABLET EC PO SCH ×2 (05:59→06:00)
[2020-11-05] MEDS: MEROPENEM 1 GM in SODIUM CHLORIDE 0.9% 100 ML IV SCH ×3 (06:00→21:18)
[2020-11-05 06:48] VITALS: BP 116/79
[2020-11-05] MEDS: INSULIN LISPRO 100 UNITS/ML, PEN SQ-INSULIN SCH ×4 (07:00→21:18)
[2020-11-05] MEDS: metFORMIN 850 MG TABLET PO SCH ×2 (08:00→16:58)
[2020-11-05 08:20] LABS: CHLORIDE 100 mmol/L (98-107); CREATININE 0.67 mg/dL (0.7-1.3)
[2020-11-05 08:21] LABS: ANION GAP < 1 mmol/L (5-15)
[2020-11-05] MEDS: ZINC SULFATE 220 MG CAPSULE PO SCH (08:58)
[2020-11-05] MEDS: METHADONE 10 MG TABLET PO SCH (08:58)
[2020-11-05] MEDS: CALCIUM/VITAMIN D3 250-125 TABLET PO SCH ×2 (08:59→21:00)
[2020-11-05] MEDS: FUROSEMIDE 20 MG TABLET PO SCH (09:00)
[2020-11-05] MEDS: DAPTOMYCIN 500 MG in SODIUM CHLORIDE 0.9% 100 ML IVPB SCH (09:01)
[2020-11-05] MEDS: FERROUS SULFATE 325 MG TABLET PO SCH (09:01)
[2020-11-05] MEDS: SODIUM CHLORIDE FLUSH 10ML SYR IVF SCH ×2 (09:02→21:06)
[2020-11-05] MEDS ORDERED: CALC1TAB68 PO (10:28)
[2020-11-05] MEDS ORDERED: METF850T PO (10:28)
[2020-11-05] MEDS ORDERED: ZINC220C8 PO (10:28)
[2020-11-05] MEDS ORDERED: FERR-36 PO (10:28)
[2020-11-05] MEDS ORDERED: GLIP5TAB10 PO (10:28)
[2020-11-05] MEDS ORDERED: SENN-211 PO (10:28)
[2020-11-05] MEDS ORDERED: ASPI81TA45 PO (10:28)
[2020-11-05] MEDS ORDERED: ATOR40TA78 PO (10:28)
[2020-11-05] MEDS ORDERED: FURO20TA3 PO (10:28)
[2020-11-05] MEDS ORDERED: CARV12.52 PO (10:28)
[2020-11-05 13:07] VITALS: BP 118/84
[2020-11-05] MEDS ORDERED: SODIUM CHLORIDE 0.9% IV SCH (14:30)
[2020-11-05] MEDS ORDERED: DALBAVANCIN HCL 1,500 MG in DEXTROSE 5% 500 ML IV SCH (14:30)
[2020-11-05] MEDS ORDERED: DALBAVANCIN HCL IV SCH (14:30)
[2020-11-05] MEDS: ACETAMINOPHEN 325 MG TABLET PO PRN ×2 (14:50→21:18)
[2020-11-05] MEDS ORDERED: LIDOCAINE-MPF 1%, 5ML ONE (15:22)
[2020-11-05 20:17] VITALS: BP 113/79
[2020-11-05] MEDS: ATORVASTATIN 40 MG TABLET PO SCH (21:00)
[2020-11-06] MEDS: OXYcodone IR 5MG TABLET PO PRN ×2 (01:14→05:53)
[2020-11-06 01:15] VITALS: BP 98/70
[2020-11-06] MEDS: HEPARIN 5,000 UNITS/ML, 1ML SQ SCH ×2 (03:03→14:52)
[2020-11-06 03:27] LABS: CALCIUM 7.9 mg/dL (8.5-10.1); CHLORIDE 99 mmol/L (98-107); CREATININE 0.63 mg/dL (0.7-1.3)
[2020-11-06 03:49] LABS: ANION GAP 1 mmol/L (5-15)
[2020-11-06] MEDS: ASPIRIN 81 MG TABLET EC PO SCH (05:53)
[2020-11-06] MEDS: MEROPENEM 1 GM in SODIUM CHLORIDE 0.9% 100 ML IV SCH ×2 (05:54→14:52)
[2020-11-06] MEDS: CARVEDILOL 12.5 MG TABLET PO SCH (05:57)
[2020-11-06] MEDS: INSULIN LISPRO 100 UNITS/ML, PEN SQ-INSULIN SCH ×3 (07:00→16:00)
[2020-11-06 07:06] VITALS: BP 113/77
[2020-11-06] MEDS: metFORMIN 850 MG TABLET PO SCH ×2 (08:00→16:42)
[2020-11-06] MEDS: CALCIUM/VITAMIN D3 250-125 TABLET PO SCH (09:00)
[2020-11-06] MEDS: FUROSEMIDE 20 MG TABLET PO SCH (09:55)
[2020-11-06] MEDS: SODIUM CHLORIDE FLUSH 10ML SYR IVF SCH (09:55)
[2020-11-06] MEDS: METHADONE 10 MG TABLET PO SCH (09:55)
[2020-11-06] MEDS: ZINC SULFATE 220 MG CAPSULE PO SCH (09:55)
[2020-11-06] MEDS: DAPTOMYCIN 500 MG in SODIUM CHLORIDE 0.9% 100 ML IVPB SCH (10:35)
[2020-11-06 13:39] VITALS: BP 110/72
[2020-11-06] MEDS ORDERED: DALBAVANCIN HCL 1,500 MG in DEXTROSE 5% 500 ML IV ONE (15:00)
== END 2020-11-06 18:14 | disposition home or self-care (01) | DRG 720 ==
LOC: ED 22:15 → EDIP 10-20 02:30 → CCU 10-20 04:08 → 5SO 10-20 13:37 → 4EST 10-23 22:45 → 3N 10-31 05:52
PROVIDERS: ADMIT Internal Medicine; ATTEND Internal Medicine
PROC: 02HV33Z Insertion of Infusion Device into Superior Vena Cava, Percutaneous Approach (ICD-10-PCS; 2020-10-27)
PROC: B5181ZA Fluoroscopy of Superior Vena Cava using Low Osmolar Contrast, Guidance (ICD-10-PCS; 2020-10-27)
PROC: B548ZZA Ultrasonography of Superior Vena Cava, Guidance (ICD-10-PCS; 2020-10-27)
PROC: 0W9B3ZZ Drainage of Left Pleural Cavity, Percutaneous Approach (ICD-10-PCS; 2020-10-30)
PROC: 0W993ZZ Drainage of Right Pleural Cavity, Percutaneous Approach (ICD-10-PCS; 2020-11-01)
PROC: 0W9B3ZZ Drainage of Left Pleural Cavity, Percutaneous Approach (ICD-10-PCS; principal; 2020-11-05)
DX: A41.9 Sepsis, unspecified organism (principal); I21.4 Non-ST elevation (NSTEMI) myocardial infarction; E43 Unspecified severe protein-calorie malnutrition; J15.0 Pneumonia due to Klebsiella pneumoniae; J15.212 Pneumonia due to Methicillin resistant Staphylococcus aureus; N17.0 Acute kidney failure with tubular necrosis; J96.01 Acute respiratory failure with hypoxia; R64 Cachexia; D50.9 Iron deficiency anemia, unspecified; F10.10 Alcohol abuse, uncomplicated; I50.43 Acute on chronic combined systolic (congestive) and diastolic (congestive) heart failure; E11.22 Type 2 diabetes mellitus with diabetic chronic kidney disease; E87.2 Acidosis; E11.649 Type 2 diabetes mellitus with hypoglycemia without coma; Z91.19 Patient's noncompliance with other medical treatment and regimen; Z86.16 Personal history of COVID-19; Z72.820 Sleep deprivation; Z66 Do not resuscitate; N50.89 Other specified disorders of the male genital organs; N18.9 Chronic kidney disease, unspecified; E11.69 Type 2 diabetes mellitus with other specified complication; E83.51 Hypocalcemia; E87.1 Hypo-osmolality and hyponatremia; D18.03 Hemangioma of intra-abdominal structures; E11.65 Type 2 diabetes mellitus with hyperglycemia; E87.5 Hyperkalemia; F11.10 Opioid abuse, uncomplicated; F17.200 Nicotine dependence, unspecified, uncomplicated; I13.0 Hypertensive heart and chronic kidney disease with heart failure and stage 1 through stage 4 chronic kidney disease, or unspecified chronic kidney disease; B19.20 Unspecified viral hepatitis C without hepatic coma; I83.009 Varicose veins of unspecified lower extremity with ulcer of unspecified site; I82.612 Acute embolism and thrombosis of superficial veins of left upper extremity; M86.9 Osteomyelitis, unspecified; L97.929 Non-pressure chronic ulcer of unspecified part of left lower leg with unspecified severity; L03.311 Cellulitis of abdominal wall; I50.82 Biventricular heart failure; I87.8 Other specified disorders of veins; L97.919 Non-pressure chronic ulcer of unspecified part of right lower leg with unspecified severity; Z79.4 Long term (current) use of insulin; Z90.49 Acquired absence of other specified parts of digestive tract; Z79.899 Other long term (current) drug therapy; Z68.22 Body mass index [BMI] 22.0-22.9, adult
CPT/HCPCS: 32555; 36415; 36600; 83986; 87806; 89051; 96374; 96375; 99285; J3490; J7042; 36573; 71045; 71046; 76700; 76705; 80048; 80053; 80069; 80074; 80307; 81001; 82330; 82533; 82550; 82803; 82947; 82962; 83036; 83615; 83735; 83880; 84100; 84157; 84443; 84484; 85025; 85520; 85651; 86140; 86592; 87040; 87070; 87077; 87081; 87086; 87147; 87186; 87205; 87521; 87522; 88112; 88305; 93005; 93306; 93356; 93922; G0378; J0878; J1644; J1940; J2185; J2405; J2543; J7060; J7070; C1751; G0475; J0875; J1815; J3475; J7040

== ENCOUNTER 2020-11-17 22:45 | Inpatient (IN) | payer MEDICAID ==
[~2020-11-17] VITALS: Ht 180.3 cm; Wt 78.9 kg
[~2020-11-17 22:45] MED LIST changes: +ASPI81TA45 PO; +ATOR40TA78 PO; +CALC1TAB68 PO; +CARV12.52 PO; +FERR-36 PO; +FURO20TA3 PO; +GLIP5TAB10 PO; +INSU100V8 SQ; +METF850T PO; +SENN-211 PO; +ZINC220C8 PO
[2020-11-17 23:56] LABS: BASOPHILS % (AUTO) 2 % (0-1); EOSINOPHILS % (AUTO) 3 % (1-7); LYMPHOCYTES % (AUTO) 24 % (22-44); MEAN CORPUSCULAR HEMOGLOBIN 25.7 pg (27.5-34.5); MEAN PLATELET VOLUME 7.2 fL (7.4-10.4); MONOCYTES % (AUTO) 11 % (2-9); NEUTROPHILS % (AUTO) 60 % (42-75); PLATELET COUNT 352 x10^3/uL (130-400); RED CELL DISTRIBUTION WIDTH 24.3 % (9.4-14.8)
[2020-11-18 00:05] LABS: ALBUMIN 2.3 g/dL (3.4-5.0); ANION GAP 5 mmol/L (5-15); CALCIUM 8.1 mg/dL (8.5-10.1); CHLORIDE 109 mmol/L (98-107)
[2020-11-18 00:12] LABS: ALANINE AMINOTRANSFERASE 27 U/L (12-78); ALKALINE PHOSPHATASE 97 U/L (45-117); BILIRUBIN,TOTAL 0.3 mg/dL (0.2-1.0); CREATININE 1.43 mg/dL (0.7-1.3); TOTAL PROTEIN 8.2 g/dL (6.4-8.2); TROPONIN I < 0.015 ng/mL (0.000-0.045)
--- NOTE | 2020-11-18 00:17 | NUR ---
bank compliance officer note: Pt to room from lobby.
--- NOTE | 2020-11-18 00:20 | NUR ---
FIRST CONTACT WITH JUAN DIEGO. PATIENT CAME TO ER TO "HAVE FLUID TAKEN OFF LUNGS". PATIENT REPORTS HAVING FLUID BUILD UP IN THE PAST WHICH WAS REMOVED AND HE "FEEL LIKE IT IS BACK". PATIENT HAS WOUNDS TO LEFT FOOT WITH SOILED DRESSING WHICH WERE COVERING IT.
[2020-11-18 00:27] LABS: ANISOCYTOSIS 2+; HYPOCHROMIA 1+; MICROCYTOSIS 1+; OVALOCYTES 1+; POLYCHROMASIA 1+; TARGET CELLS 1+
[2020-11-18 00:30] LABS: <PLATELET ESTIMATE> ADEQUATE; <PLT MORPHOLOGY> NORMAL PLT MORPH
[2020-11-18] MEDS ORDERED: FUROSEMIDE 40 MG/4 ML IV ONE (01:00)
[2020-11-18] MEDS ORDERED: FUROSEMIDE 40 MG/4 ML ONE (01:14)
--- NOTE | 2020-11-18 02:10 | NUR ---
REPORT GIVEN TO JAYE
[2020-11-18] MEDS ORDERED: ONDANSETRON 2MG/ML, 2ML IV PRN (02:30)
--- NOTE | 2020-11-18 03:18 | NUR ---
PATIENT SLEEPING ON [place]. NAD AT THIS TIME
[2020-11-18 04:15] VITALS: BP 125/76
[2020-11-18] MEDS: ENOXAPARIN 40 MG/0.4 ML SQ SCH (04:48)
[2020-11-18 05:40] LABS: BASOPHILS % (AUTO) 0 % (0-1); EOSINOPHILS % (AUTO) 2 % (1-7); LYMPHOCYTES % (AUTO) 29 % (22-44); MEAN CORPUSCULAR HEMOGLOBIN 25.9 pg (27.5-34.5); MEAN PLATELET VOLUME 7.4 fL (7.4-10.4); MONOCYTES % (AUTO) 11 % (2-9); NEUTROPHILS % (AUTO) 58 % (42-75); PLATELET COUNT 358 x10^3/uL (130-400); RED BLOOD COUNT 4.37 x10^6/uL (4.38-5.82); RED CELL DISTRIBUTION WIDTH 24.4 % (9.4-14.8)
[2020-11-18 05:52] LABS: ANION GAP 4 mmol/L (5-15); CALCIUM 8.4 mg/dL (8.5-10.1); CHLORIDE 105 mmol/L (98-107); CREATININE 1.45 mg/dL (0.7-1.3)
[2020-11-18] MEDS ORDERED: VANCOMYCIN PER PHARMACY MC PRN (06:30)
[2020-11-18] MEDS ORDERED: PHARMACOKINETIC MONITORING MC PRN (06:30)
[2020-11-18] MEDS ORDERED: PHARMACY MAY ADJ FOR RENAL FX MC PRN (06:30)
[2020-11-18] MEDS ORDERED: VANCOMYCIN 2,000 MG in SODIUM CHLORIDE 0.9% 500 ML IV ONE (07:00)
[2020-11-18] MEDS: FUROSEMIDE 40 MG/4 ML IVPush SCH ×2 (08:20→22:22)
[2020-11-18] MEDS: AMPICILLIN/SULBACTAM 3 GM in SODIUM CHLORIDE 0.9% 100 ML IV SCH ×3 (08:20→22:23)
[2020-11-18 08:30] VITALS: BP 110/71
[2020-11-18 14:20] VITALS: BP 90/60
[2020-11-18 15:29] VITALS: BP 100/68
[2020-11-18 18:58] VITALS: BP 90/65
[2020-11-18] MEDS ORDERED: VANCOMYCIN 1,500 MG in SODIUM CHLORIDE 0.9% 250 ML IV ONE (21:00)
[2020-11-18] MEDS ORDERED: METHADONE 10 MG TABLET PO ONE (21:30)
[2020-11-18] MEDS: INSULIN LISPRO 100 UNITS/ML, PEN SQ-INSULIN SCH (21:30)
[2020-11-18] MEDS: ATORVASTATIN 40 MG TABLET PO SCH (22:22)
[2020-11-18] MEDS: ACETAMINOPHEN 650 MG/20.3 ML UDC PO PRN (22:29)
[2020-11-18 23:47] VITALS: BP 113/72
[2020-11-19 05:09] LABS: BASOPHILS % (AUTO) 1 % (0-1); EOSINOPHILS % (AUTO) 3 % (1-7); LYMPHOCYTES % (AUTO) 23 % (22-44); MEAN CORPUSCULAR HEMOGLOBIN 25.7 pg (27.5-34.5); MEAN CORPUSCULAR HGB CONC 32.1 g/dL (33.2-36.2); MEAN PLATELET VOLUME 6.9 fL (7.4-10.4); MONOCYTES % (AUTO) 11 % (2-9); NEUTROPHILS % (AUTO) 62 % (42-75); PLATELET COUNT 292 x10^3/uL (130-400); RED BLOOD COUNT 3.86 x10^6/uL (4.38-5.82)
[2020-11-19 05:17] VITALS: BP 111/74
[2020-11-19 05:19] LABS: CHLORIDE 106 mmol/L (98-107)
[2020-11-19] MEDS: ENOXAPARIN 40 MG/0.4 ML SQ SCH (05:23)
[2020-11-19] MEDS: ASPIRIN 81 MG TABLET CHEW PO SCH (05:23)
[2020-11-19] MEDS: CARVEDILOL 12.5 MG TABLET PO SCH ×2 (05:24→18:14)
[2020-11-19 05:30] LABS: ANION GAP 4 mmol/L (5-15); CALCIUM 7.9 mg/dL (8.5-10.1); CREATININE 1.49 mg/dL (0.7-1.3)
[2020-11-19 06:13] VITALS: BP 108/75
[2020-11-19] MEDS: FUROSEMIDE 40 MG/4 ML IVPush SCH ×2 (08:27→20:22)
[2020-11-19] MEDS: INSULIN LISPRO 100 UNITS/ML, PEN SQ-INSULIN SCH ×4 (08:28→20:21)
[2020-11-19] MEDS: AMPICILLIN/SULBACTAM 3 GM in SODIUM CHLORIDE 0.9% 100 ML IV SCH ×2 (08:28→18:26)
[2020-11-19] MEDS ORDERED: LIDOCAINE-MPF 1%, 5ML ONE (14:00)
[2020-11-19 14:13] VITALS: BP 126/86
[2020-11-19] MEDS: VANCOMYCIN 1,500 MG in SODIUM CHLORIDE 0.9% 250 ML IV SCH (14:58)
[2020-11-19 20:16] VITALS: BP 103/71
[2020-11-19] MEDS: ATORVASTATIN 40 MG TABLET PO SCH (20:22)
[2020-11-19 21:48] VITALS: BP_SYST 101; BP_SYST 112; BP_SYST 116; BP_DIAS 70; BP_DIAS 73; BP_DIAS 75
[2020-11-20 00:04] VITALS: BP 105/69
[2020-11-20] MEDS: AMPICILLIN/SULBACTAM 3 GM in SODIUM CHLORIDE 0.9% 100 ML IV SCH ×2 (00:05→08:19)
[2020-11-20] MEDS: ACETAMINOPHEN 650 MG/20.3 ML UDC PO PRN ×2 (00:12→05:31)
[2020-11-20] MEDS: CARVEDILOL 12.5 MG TABLET PO SCH ×2 (05:25→16:13)
[2020-11-20] MEDS: ASPIRIN 81 MG TABLET CHEW PO SCH ×2 (05:31→08:17)
[2020-11-20] MEDS: ENOXAPARIN 40 MG/0.4 ML SQ SCH (05:31)
[2020-11-20 05:41] LABS: BASOPHILS % (AUTO) 1 % (0-1); EOSINOPHILS % (AUTO) 3 % (1-7); LYMPHOCYTES % (AUTO) 24 % (22-44); MEAN CORPUSCULAR HEMOGLOBIN 25.5 pg (27.5-34.5); MEAN CORPUSCULAR HGB CONC 31.8 g/dL (33.2-36.2); MEAN PLATELET VOLUME 6.9 fL (7.4-10.4); MONOCYTES % (AUTO) 11 % (2-9); NEUTROPHILS % (AUTO) 61 % (42-75); PLATELET COUNT 258 x10^3/uL (130-400); RED BLOOD COUNT 3.67 x10^6/uL (4.38-5.82)
[2020-11-20 05:54] LABS: CHLORIDE 103 mmol/L (98-107)
[2020-11-20 05:58] LABS: ANION GAP 3 mmol/L (5-15); CALCIUM 7.8 mg/dL (8.5-10.1)
[2020-11-20] MEDS: INSULIN LISPRO 100 UNITS/ML, PEN SQ-INSULIN SCH ×3 (07:28→16:18)
[2020-11-20] MEDS: FUROSEMIDE 40 MG/4 ML IVPush SCH (08:19)
[2020-11-20 08:36] VITALS: BP 99/67
[2020-11-20] MEDS ORDERED: METHADONE 10 MG TABLET PO SCH (09:00)
[2020-11-20] MEDS: VANCOMYCIN 1,500 MG in SODIUM CHLORIDE 0.9% 250 ML IV SCH (09:28)
[2020-11-20 13:01] VITALS: BP 95/64
[2020-11-20] MEDS ORDERED: LIDOCAINE-MPF 1%, 5ML ONE (13:49)
[2020-11-20] MEDS ORDERED: LACTOBACILLUS CHEW TABLET PO SCH (16:00)
[2020-11-20] MEDS ORDERED: AMOX-291 PO (16:13)
[2020-11-20] MEDS ORDERED: LISI5TAB7 PO (16:13)
[2020-11-20] MEDS ORDERED: CARV6.252 PO (16:13)
[2020-11-20] MEDS ORDERED: FURO40TA6 PO (16:13)
[2020-11-20] MEDS ORDERED: SULF1TAB24 PO (16:24)
[2020-11-20] MEDS ORDERED: DOXYCYCLINE 100MG TABLET PO SCH (21:00)
[2020-11-20] MEDS ORDERED: AMOXICILLIN/CLAV 875-125MG TABLET PO SCH (21:00)
== END 2020-11-20 17:37 | disposition home or self-care (01) | DRG 469 ==
LOC: ED 23:15 → EDIP 11-18 01:41 → 5SO 11-18 03:27
PROVIDERS: ADMIT Internal Medicine; ATTEND Internal Medicine
PROC: 0W9B3ZZ Drainage of Left Pleural Cavity, Percutaneous Approach (ICD-10-PCS; principal; 2020-11-19)
PROC: BB4BZZZ Ultrasonography of Pleura (ICD-10-PCS; 2020-11-19)
PROC: 0W993ZZ Drainage of Right Pleural Cavity, Percutaneous Approach (ICD-10-PCS; 2020-11-20)
PROC: BB4BZZZ Ultrasonography of Pleura (ICD-10-PCS; 2020-11-20)
DX: N17.0 Acute kidney failure with tubular necrosis (principal); J96.21 Acute and chronic respiratory failure with hypoxia; I50.43 Acute on chronic combined systolic (congestive) and diastolic (congestive) heart failure; E44.0 Moderate protein-calorie malnutrition; J91.8 Pleural effusion in other conditions classified elsewhere; E11.65 Type 2 diabetes mellitus with hyperglycemia; F11.20 Opioid dependence, uncomplicated; E11.69 Type 2 diabetes mellitus with other specified complication; I11.0 Hypertensive heart disease with heart failure; B18.2 Chronic viral hepatitis C; I42.9 Cardiomyopathy, unspecified; F10.10 Alcohol abuse, uncomplicated; F15.10 Other stimulant abuse, uncomplicated; I87.2 Venous insufficiency (chronic) (peripheral); Z20.822 Contact with and (suspected) exposure to COVID-19; L03.116 Cellulitis of left lower limb; M86.8X8 Other osteomyelitis, other site; Z66 Do not resuscitate; F19.10 Other psychoactive substance abuse, uncomplicated; Z63.8 Other specified problems related to primary support group; Z86.16 Personal history of COVID-19; Z68.24 Body mass index [BMI] 24.0-24.9, adult; Z91.19 Patient's noncompliance with other medical treatment and regimen
CPT/HCPCS: 32555; 36415; 71045; 80048; 80053; 80202; 82962; 83880; 84484; 85025; 87040; 93005; 93970; 96374; 96375; G0378; J0295; J1650; J1940; J3370; U0005; J1815; J7040; J7050; U0003

== ENCOUNTER 2020-11-26 19:34 | Emergency (ER) | payer MEDICAID ==
[~2020-11-26] VITALS: Ht 180.3 cm; Wt 80.0 kg
[~2020-11-26 19:34] MED LIST changes: +AMOX-291 PO; +CARV6.252 PO; +FURO40TA6 PO; +LISI5TAB7 PO; +SULF1TAB24 PO
[2020-11-26] MEDS ORDERED: SODIUM CHLORIDE FLUSH 10ML SYR IVF ONE (20:30)
[2020-11-26 21:20] LABS: BASOPHILS % (AUTO) 1 % (0-1); EOSINOPHILS % (AUTO) 3 % (1-7); LYMPHOCYTES % (AUTO) 21 % (22-44); MEAN CORPUSCULAR HEMOGLOBIN 25.8 pg (27.5-34.5); MEAN CORPUSCULAR HGB CONC 31.9 g/dL (33.2-36.2); MEAN PLATELET VOLUME 7.3 fL (7.4-10.4); MONOCYTES % (AUTO) 10 % (2-9); NEUTROPHILS % (AUTO) 66 % (42-75); PLATELET COUNT 191 x10^3/uL (130-400); RED BLOOD COUNT 3.68 x10^6/uL (4.38-5.82); RED CELL DISTRIBUTION WIDTH 23.6 % (9.4-14.8)
[2020-11-26 21:23] LABS: ALBUMIN 2.2 g/dL (3.4-5.0); CHLORIDE 106 mmol/L (98-107)
[2020-11-26 21:28] LABS: CREATININE 1.11 mg/dL (0.7-1.3); TROPONIN I < 0.015 ng/mL (0.000-0.045)
[2020-11-26 21:31] LABS: ANION GAP 7 mmol/L (5-15)
[2020-11-26] MEDS ORDERED: FUROSEMIDE 40 MG/4 ML ONE (22:27)
[2020-11-26] MEDS ORDERED: FUROSEMIDE 20 MG/2 ML IV ONE (22:30)
--- NOTE | 2020-11-26 23:05 | NUR ---
PT HAD 300ML OF URINARY OUTPUT, DARK YELLOW URINE. PT HAPPY HE IS ABLE TO PEE NOW, AND HAPPY TO HAVE RECEIVED THE MEDICATIONS TO HELP.
--- NOTE | 2020-11-26 23:09 | NUR ---
PT UPDATED TO TREATMENT AND IS AWARE OF DISCHARGE. MD TO SPEAK WITH PT ON PLAN OF CARE AND PT V/U. PT GIVEN F/U AND D/C INSTRUCTIONS AND ADISED ON MEDS GIVEN IN THE ER AND HE V/U. PT WHEELED TO DISCHARGE DESK IN WHEELCHAIR.
== END 2020-11-26 23:27 | disposition home or self-care (01) ==
LOC: ED 19:43
DX: R06.00 Dyspnea, unspecified (principal); I11.0 Hypertensive heart disease with heart failure; I50.21 Acute systolic (congestive) heart failure; R00.0 Tachycardia, unspecified; R06.02 Shortness of breath; E11.649 Type 2 diabetes mellitus with hypoglycemia without coma
CPT/HCPCS: 36415; 71045; 80048; 82040; 83880; 84484; 85025; 93005; 96374; 99285; J1940

== ENCOUNTER 2020-12-02 09:42 | Emergency (ER) | payer MEDICAID ==
[~2020-12-02] VITALS: Ht 180.3 cm; Wt 79.8 kg
--- NOTE | 2020-12-02 10:35 | NUR ---
FIRST CONTACT, PT STATING HE'S HUNGRY AND WORRIED THAT IS BLOOD SUGAR IS LOW. STATES COULDN'T FIND GLUCOMETER STRIPS THIS AM. FS OBTAINED, 135 AND REPORTED TO PT ASKING FOR FOOD. PT TOLD TO WAIT UNTIL ERP VERIFIES EATING OKAY. PULSE OX IN PLACE, 95% RA. PT STATES SOME SOB AND WORRIED HE HAS MORE FLUID IN LUNGS. STATES HE HAS TO GET "FLUID DRAINED" EVERY FEW DAYS AND AT MOST EVERY WEEK. CALL LIGHT WITHIN REACH, ERP IN TO SEE PT.
[2020-12-02] MEDS ORDERED: SODIUM CHLORIDE FLUSH 10ML SYR IVF ONE (11:00)
--- NOTE | 2020-12-02 11:13 | NUR ---
LS CTA TO ALL LOBES EXCEPT LLL WHICH IS DIMINISHED. DRESSING TO LLL/BACK CDI, PT STATES FROM PREVIOUS THORACENTESIS. BLE EDEMA 3-4+, WEAPING. UNABLE TO PALPATE PEDAL PULSES. MULTIPLE WOUNDS AND SCARRING TO BILATERAL LOWER LEGS AND FEET IN VARYING DEGREES OF HEALING WITH SOME PURULENT AND SEROUS DRAINAGE OBSERVED. PT STATES WOUNDS CHRONIC AND HAS GONE FOR WOUND CARE NUMEROUS TIMES. PT STATES WOUNDS "WORSE THAN NORMAL TODAY" BUT HAS A SKIN/WOUND CARE ROUTINE AT HOME. PCXR COMPLETED, LAB IN TO DRAW. REQUEST TO LAB FOR BC X 1 TO BE DRAWN WITH OTHERS. REPORT TO RYAN, TRANSFER OF CARE AT THIS TIME.
[2020-12-02 11:25] LABS: BASOPHILS % (AUTO) 1 % (0-1); EOSINOPHILS % (AUTO) 3 % (1-7); LYMPHOCYTES % (AUTO) 20 % (22-44); MEAN CORPUSCULAR HEMOGLOBIN 25.7 pg (27.5-34.5); MEAN CORPUSCULAR HGB CONC 31.6 g/dL (33.2-36.2); MEAN PLATELET VOLUME 6.8 fL (7.4-10.4); MONOCYTES % (AUTO) 8 % (2-9); NEUTROPHILS % (AUTO) 67 % (42-75); PLATELET COUNT 325 x10^3/uL (130-400); RED BLOOD COUNT 4.44 x10^6/uL (4.38-5.82); RED CELL DISTRIBUTION WIDTH 23.7 % (9.4-14.8)
[2020-12-02 11:34] LABS: ALBUMIN 2.6 g/dL (3.4-5.0); ANION GAP 5 mmol/L (5-15); CALCIUM 7.7 mg/dL (8.5-10.1); CHLORIDE 104 mmol/L (98-107)
[2020-12-02 11:50] LABS: ANISOCYTOSIS 1+; HYPOCHROMIA 1+
--- NOTE | 2020-12-02 11:50 | NUR ---
WOUND CARE DONE TO CHRONIC HEALING WOUNDS ON BILAT ANTERIOR LOWER LEGS AND OPEN WOUNDS X2 ON PLANTAR/LATERAL ASPECT OF L FOOT. ALL WOUNDS COVERED WITH XEROFORM, STERILE GAUZE, WRAPPED WITH KERLIX PER ERP. WILL PROVIDE PT WITH NEW SOCKS AND PANTS. EXTRA WOUND CARE SUPPLIES PROVIDED TO PT.
[2020-12-02 11:51] LABS: <PLATELET ESTIMATE> ADEQUATE; <PLT MORPHOLOGY> NORMAL PLT MORPH; ALANINE AMINOTRANSFERASE 22 U/L (12-78); ALKALINE PHOSPHATASE 98 U/L (45-117); BILIRUBIN,TOTAL 0.5 mg/dL (0.2-1.0); CREATININE 1.14 mg/dL (0.7-1.3); POLYCHROMASIA 1+; ROULEAUX 1+; TOTAL PROTEIN 8.7 g/dL (6.4-8.2)
--- NOTE | 2020-12-02 11:51 | NUR ---
SPO2 WAS DOWN TO 88% ON RA. PT REPORTS, "I USE 3L O2 AT HOME BUT I DIDN'T BRING IT BECAUSE I DON'T HAVE PORTABLE O2. I FORGOT TO TELL THEM IN TRIAGE." O2 APPLIED AT 3L NC, SPO2 INCREASED TO 96%.
[2020-12-02] MEDS ORDERED: LIDOCAINE 1%, 10ML ONE (12:34)
--- NOTE | 2020-12-02 12:35 | NUR ---
ERP WAS IN FOR RECHECK. PT UNDERSTANDS PLAN FOR THORACENTESIS IN IR.
--- NOTE | 2020-12-02 12:45 | NUR ---
PT TO IR VIA [place]EN FOR THORACENTESIS.
--- NOTE | 2020-12-02 13:11 | NUR ---
PT BACK FROM THORACENTESIS. LUNCH TRAY ORDERED.
[2020-12-02 13:30] VITALS: BP 103/76
--- NOTE | 2020-12-02 13:50 | NUR ---
ERP WAS IN FOR RECHECK. PT ATE LUNCH AND WASHED UP IN ROOM. D/C INSTRUCTIONS PROVIDED TO PT. INSTRUCTED TO RETURN FOR SOB OR OTHER CONCERNING SYMPTOMS. ASSISTED OUT OF ED VIA WC. INFORMATION & PHONE PROVIDED TO PT FOR MTM TRANSPORTATION.
== END 2020-12-02 13:57 | disposition home or self-care (01) ==
LOC: ED 13:50
DX: S81.831A Puncture wound without foreign body, right lower leg, initial encounter (principal); J90 Pleural effusion, not elsewhere classified; R06.00 Dyspnea, unspecified; R06.02 Shortness of breath; I11.0 Hypertensive heart disease with heart failure; I50.9 Heart failure, unspecified; E11.9 Type 2 diabetes mellitus without complications; Z87.891 Personal history of nicotine dependence; Z86.711 Personal history of pulmonary embolism; X58.XXXA Exposure to other specified factors, initial encounter; Y93.89 Activity, other specified; Y92.89 Other specified places as the place of occurrence of the external cause; Y99.8 Other external cause status
CPT/HCPCS: 32555; 71045; 80053; 82150; 82945; 82962; 83615; 83880; 83986; 84157; 85025; 87015; 87070; 87075; 87102; 87116; 87205; 87206; 89051; 93005; 99285; J3490

== ENCOUNTER 2020-12-09 07:44 | Emergency (ER) | payer MEDICAID ==
[~2020-12-09] VITALS: Ht 180.3 cm; Wt 85.2 kg
--- NOTE | 2020-12-09 08:15 | NUR ---
FIRST CONTACT: SOB SINCE LAST NIGHT, SUPPL O2 AT NIGHT FOR COPD, NOT TAKING RESP MEDS "BECAUSE SOMETHING WAS MAKING ME BREAK OUT IN A RASH"- MULT SMALL SCABS TO ANTERIOR TORSO. PT TO BED WITH STEADY GAIT. ATTACHED TO MONITORS. VSS. HARE.
--- NOTE | 2020-12-09 09:13 | NUR ---
DR. CHO TO BEDSIDE FOR EVALUATION.
--- NOTE | 2020-12-09 09:48 | NUR ---
PT RESTING IN BED. VSS. REQ BLOOD SUGAR CHECK STATING HE "FEELS LOW" BS 162
[2020-12-09] MEDS ORDERED: LIDOCAINE 1%, 10ML ONE (10:29)
--- NOTE | 2020-12-09 11:03 | NUR ---
PT TO IR. JARETTS. PAYAM.
--- NOTE | 2020-12-09 11:32 | NUR ---
PT IN IR.
--- NOTE | 2020-12-09 11:38 | NUR ---
PT TO XRAY FROM IR.
[2020-12-09 11:44] VITALS: BP 101/60
--- NOTE | 2020-12-09 11:48 | NUR ---
2L FROM [facility]. VSS. HARE.
--- NOTE | 2020-12-09 11:49 | NUR ---
PT PROVIDED WITH SNACKS AND WATER.
--- NOTE | 2020-12-09 13:04 | NUR ---
Patient given discharge instructions and they have confirmed that they understand the instructions. Patient ambulatory with steady gait. NAD, all questions answered appropriately, denies additional needs at this time. No personal belongings left in room after discharge.
== END 2020-12-09 13:05 | disposition home or self-care (01) ==
LOC: ED 08:54
DX: J90 Pleural effusion, not elsewhere classified (principal); R06.00 Dyspnea, unspecified; I11.0 Hypertensive heart disease with heart failure; I50.9 Heart failure, unspecified; R94.31 Abnormal electrocardiogram [ECG] [EKG]; J44.9 Chronic obstructive pulmonary disease, unspecified; E11.649 Type 2 diabetes mellitus with hypoglycemia without coma; Z87.891 Personal history of nicotine dependence
CPT/HCPCS: 32555; 71045; 82962; 93005; 99285; J3490

== ENCOUNTER 2020-12-10 16:41 | Emergency (ER) | payer MEDICAID ==
[~2020-12-10] VITALS: Ht 180.3 cm; Wt 84.7 kg
[2020-12-10 16:46] VITALS: BP 108/84
== END 2020-12-10 20:44 | disposition left against medical advice (07) ==
LOC: ED 17:00
DX: R06.02 Shortness of breath (principal); Z53.21 Procedure and treatment not carried out due to patient leaving prior to being seen by health care provider

== ENCOUNTER 2020-12-11 16:29 | Emergency (ER) | payer MEDICAID ==
[~2020-12-11] VITALS: Ht 180.3 cm; Wt 86.4 kg
[2020-12-11 17:57] LABS: BASOPHILS % (AUTO) 1 % (0-1); EOSINOPHILS % (AUTO) 2 % (1-7); LYMPHOCYTES % (AUTO) 14 % (22-44); MEAN CORPUSCULAR HEMOGLOBIN 25.6 pg (27.5-34.5); MEAN CORPUSCULAR HGB CONC 31.2 g/dL (33.2-36.2); MONOCYTES % (AUTO) 7 % (2-9); NEUTROPHILS % (AUTO) 76 % (42-75); PLATELET COUNT 249 x10^3/uL (130-400); RED BLOOD COUNT 4.01 x10^6/uL (4.38-5.82); RED CELL DISTRIBUTION WIDTH 22.1 % (9.4-14.8)
[2020-12-11 18:05] LABS: ANION GAP 3 mmol/L (5-15); CALCIUM 7.9 mg/dL (8.5-10.1); CHLORIDE 108 mmol/L (98-107)
[2020-12-11 18:06] LABS: ALANINE AMINOTRANSFERASE 15 U/L (12-78); ALKALINE PHOSPHATASE 79 U/L (45-117); BILIRUBIN,TOTAL 0.2 mg/dL (0.2-1.0); CREATININE 0.92 mg/dL (0.7-1.3); TOTAL PROTEIN 7.2 g/dL (6.4-8.2)
[2020-12-11 18:07] LABS: TROPONIN I < 0.015 ng/mL (0.000-0.045)
--- NOTE | 2020-12-11 19:22 | NUR ---
head boys golf coach note: Pt to room from lobby, ambulatory with steady gait.
--- NOTE | 2020-12-11 19:33 | NUR ---
PT TO ROOM 23 W/ C/O SOB X 2 DAYS. PT STATES HE NORMALLY HAS PLEURAL EFFUSIONS AND NORMALLY GETS THEM DRAINED. STATES HE WAS HERE 2 DAYS AGO AND HAD THE L SIDE DRAINED. PT CAME IN YESTERDAY AND DECIDED TO LEAVE W/O BEING SEEN. PT RESTING ON GURNEY. NADN. MONITORS APPLIED. VSS. WAM BLANKET PROVIDED. CALL LIGHT IN REACH.
[2020-12-11 19:37] LABS: <PLATELET ESTIMATE> ADEQUATE; <PLT MORPHOLOGY> NORMAL PLT MORPH; ANISOCYTOSIS 1+; HYPOCHROMIA 1+; POLYCHROMASIA 1+
--- NOTE | 2020-12-11 20:15 | NUR ---
PT RESTING ON [place]. PAYAM. JARETTS. AWARE OF POC FOR THROACENTESIS AND IS AGREEABLE.
[2020-12-11] MEDS ORDERED: LIDOCAINE 1%, 10ML ONE (20:33)
--- NOTE | 2020-12-11 20:57 | NUR ---
REPORT GIVEN TO MELISSA CARDENAS.
[2020-12-11 20:58] VITALS: BP 119/91
== END 2020-12-11 22:55 | disposition home or self-care (01) ==
LOC: ED 20:00
DX: R06.00 Dyspnea, unspecified (principal); J90 Pleural effusion, not elsewhere classified; I11.0 Hypertensive heart disease with heart failure; I50.9 Heart failure, unspecified; J44.9 Chronic obstructive pulmonary disease, unspecified; E11.9 Type 2 diabetes mellitus without complications; Z86.711 Personal history of pulmonary embolism
CPT/HCPCS: 32555; 36415; 71045; 80053; 83880; 84484; 85025; 93005; 99285; J3490

== ENCOUNTER 2020-12-14 06:26 | Inpatient (IN) | payer MEDICAID ==
[~2020-12-14] VITALS: Ht 154.9 cm; Wt 81.1 kg
--- NOTE | 2020-12-14 06:37 | NUR ---
EKG DONE IN TRIAGE.
--- NOTE | 2020-12-14 07:20 | NUR ---
PT STATES HIS TESTICLES ARE MORE SWOLLEN THAN USUAL. PT PROVIDED URINE SAMPLE. PT STATES HE IS ON HOME OXYGEN AND DOES NOT HAVE A PORTABLE DEVICE. PT PLACED ON OXYGEN 2L VIA NC. PT OXYGEN AT 90-91% RA PRIOR TO OXYGEN ADMIN. PT CONNECTED TO ALL MONITORING. CALL LIGHT IN REACH. AWAITING ORDERS.
--- NOTE | 2020-12-14 07:48 | NUR ---
PIV PLACEMENT ATTEMPTED X1. LABS DRAWN, BUT UNABLE TO KEEP VIABLE PIV. AWAITING ORDERS.
--- NOTE | 2020-12-14 08:42 | NUR ---
ERPA AT BEDSIDE FOR ASSESSMENT.
--- NOTE | 2020-12-14 09:12 | NUR ---
Note pooja in EDM - 12/14/20 at 0915 by MARK PT SLEEPING ON GURNEY. RESP EVEN AND UNLABORED. PIV PLACED BY TASK RN. PT CONNECTED TO MONITORING. CALL LIGHT IN REACH. XRAY DONE. LABS COLLECTED BY API DEVELOPER.
--- NOTE | 2020-12-14 09:12 | NUR ---
PT SLEEPING ON GURNEY. RESP EVEN AND UNLABORED. PIV PLACED BY TASK RN. PT CONNECTED TO MONITORING. CALL LIGHT IN REACH. XRAY DONE. LABS COLLECTED BY SEED LABORATORY ASSISTANT.
[2020-12-14 09:16] LABS: BASOPHILS % (AUTO) 1 % (0-1); EOSINOPHILS % (AUTO) 2 % (1-7); LYMPHOCYTES % (AUTO) 14 % (22-44); MEAN CORPUSCULAR HEMOGLOBIN 25.3 pg (27.5-34.5); MEAN PLATELET VOLUME 7.2 fL (7.4-10.4); MONOCYTES % (AUTO) 8 % (2-9); NEUTROPHILS % (AUTO) 75 % (42-75); PLATELET COUNT 236 x10^3/uL (130-400); RED BLOOD COUNT 3.89 x10^6/uL (4.38-5.82); RED CELL DISTRIBUTION WIDTH 21.4 % (9.4-14.8)
[2020-12-14 09:23] LABS: ANION GAP 5 mmol/L (5-15); CALCIUM 7.9 mg/dL (8.5-10.1); CHLORIDE 106 mmol/L (98-107)
[2020-12-14 09:28] LABS: ALANINE AMINOTRANSFERASE 18 U/L (12-78); ALKALINE PHOSPHATASE 81 U/L (45-117); BILIRUBIN,TOTAL 0.2 mg/dL (0.2-1.0); CREATININE 0.81 mg/dL (0.7-1.3)
--- NOTE | 2020-12-14 09:33 | NUR ---
ALL RESULTS ARE BACK AT THIS TIME. CHART UP FOR RECHECK.
--- NOTE | 2020-12-14 10:12 | NUR ---
ALL WOUND DRESSINGS REMOVED TO BLE FOR ERMD TO ASSESS. ERMD AT BEDSIDE TO ASSESS PT.
[2020-12-14] MEDS ORDERED: LIDOCAINE 1%, 10ML ONE (11:12)
--- NOTE | 2020-12-14 11:16 | NUR ---
SECOND PIV PLACED BY TASK RN VIA US.
--- NOTE | 2020-12-14 11:26 | NUR ---
PT AT IR.
[2020-12-14] MEDS ORDERED: FUROSEMIDE 40 MG/4 ML IV ONE (11:30)
[2020-12-14] MEDS ORDERED: SODIUM CHLORIDE FLUSH 10ML SYR IVF PRN (12:00)
[2020-12-14] MEDS ORDERED: FUROSEMIDE 40 MG/4 ML ONE (12:10)
--- NOTE | 2020-12-14 12:19 | NUR ---
PT BACK FROM IR. CONTRACTOR BROOMCORN THRESHING PER JUN. URINAL PROVIDED. CALL LIGHT IN REACH. PT TO BE ADMIT. PT AWARE OF POC.
--- NOTE | 2020-12-14 12:36 | NUR ---
PER HAILE, OK FOR PT TO EAT. DIET TRAY ORDERED.
--- NOTE | 2020-12-14 12:54 | NUR ---
REPORT FROM GEORGINA TORRES.
--- NOTE | 2020-12-14 12:56 | NUR ---
HOSPITAL BED REQUESTED.
[2020-12-14] MEDS ORDERED: GUAIFENESIN/DM 200-20MG, 10ML UDC PO PRN (13:00)
[2020-12-14] MEDS ORDERED: hydrALAzine 20 MG/ML, 1ML IVPush PRN (13:00)
[2020-12-14] MEDS ORDERED: ONDANSETRON ODT 4 MG PO PRN (13:00)
[2020-12-14] MEDS ORDERED: BUTALB/APAP/CAFFEINE 50MG/325MG/40MG PO PRN ×2 (13:00)
[2020-12-14] MEDS ORDERED: GABAPENTIN 300 MG CAPSULE PO PRN (13:00)
[2020-12-14] MEDS ORDERED: ACETAMINOPHEN 325 MG TABLET PO PRN (13:00)
[2020-12-14] MEDS ORDERED: ENALAPRILAT 1.25 MG/ML, 2ML IVPush PRN (13:00)
[2020-12-14] MEDS ORDERED: ONDANSETRON 2MG/ML, 2ML IVPush PRN (13:00)
[2020-12-14] MEDS ORDERED: BACLOFEN 10 MG TABLET PO PRN (13:00)
[2020-12-14] MEDS ORDERED: HEPARIN 5,000 UNITS/ML, 1ML ONE (13:22)
[2020-12-14] MEDS ORDERED: FUROSEMIDE 40 MG TABLET ONE (13:23)
--- NOTE | 2020-12-14 13:35 | NUR ---
TRANSFERRED PT TO HOSPITAL BED.
[2020-12-14] MEDS: HEPARIN 5,000 UNITS/ML, 1ML SQ SCH ×2 (13:54→21:00)
[2020-12-14] MEDS: FUROSEMIDE 40 MG TABLET PO SCH ×2 (13:54→18:32)
[2020-12-14] MEDS: MUPIROCIN OINT 2%, 22GM TP SCH ×2 (18:00→21:52)
[2020-12-14] MEDS: INSULIN LISPRO 100 UNITS/ML, PEN SQ-INSULIN SCH ×2 (18:00→21:51)
[2020-12-14 18:17] LABS: FREE T4 (FREE THYROXINE) 0.97 ng/dL (0.76-1.46)
[2020-12-14 18:21] VITALS: BP 114/75
[2020-12-14] MEDS: CARVEDILOL 3.125 MG TABLET PO SCH (18:31)
[2020-12-14] MEDS: MELATONIN 5 MG TABLET PO SCH (21:00)
[2020-12-15 01:46] VITALS: BP 104/63
[2020-12-15] MEDS: HEPARIN 5,000 UNITS/ML, 1ML SQ SCH ×3 (05:58→21:55)
[2020-12-15] MEDS: CARVEDILOL 3.125 MG TABLET PO SCH ×2 (05:58→17:58)
[2020-12-15 06:35] LABS: BASOPHILS % (AUTO) 1 % (0-1); EOSINOPHILS % (AUTO) 3 % (1-7); LYMPHOCYTES % (AUTO) 26 % (22-44); MEAN CORPUSCULAR HEMOGLOBIN 25.6 pg (27.5-34.5); MEAN CORPUSCULAR HGB CONC 31.4 g/dL (33.2-36.2); MONOCYTES % (AUTO) 12 % (2-9); NEUTROPHILS % (AUTO) 58 % (42-75); PLATELET COUNT 208 x10^3/uL (130-400); RED BLOOD COUNT 4.04 x10^6/uL (4.38-5.82); RED CELL DISTRIBUTION WIDTH 22.1 % (9.4-14.8)
[2020-12-15 06:44] LABS: ALBUMIN 1.4 g/dL (3.4-5.0); ANION GAP 3 mmol/L (5-15); CALCIUM 7.8 mg/dL (8.5-10.1); CHLORIDE 104 mmol/L (98-107); CREATININE 0.96 mg/dL (0.7-1.3)
[2020-12-15 07:15] VITALS: BP 100/63
[2020-12-15] MEDS: INSULIN LISPRO 100 UNITS/ML, PEN SQ-INSULIN SCH ×4 (07:27→21:56)
[2020-12-15] MEDS: FUROSEMIDE 40 MG TABLET PO SCH (07:30)
[2020-12-15] MEDS: LISINOPRIL 5 MG TABLET PO SCH (07:34)
[2020-12-15] MEDS: METHADONE 10 MG TABLET PO SCH (10:18)
[2020-12-15] MEDS: SENNA/DOCUSATE TABLET PO SCH (10:18)
[2020-12-15] MEDS: MUPIROCIN OINT 2%, 22GM TP SCH ×3 (10:18→21:56)
[2020-12-15 12:39] VITALS: BP 108/70
[2020-12-15 16:06] VITALS: BP 111/76
[2020-12-15] MEDS: FUROSEMIDE 80 MG TABLET PO SCH (17:58)
[2020-12-15 19:05] VITALS: BP 113/78
[2020-12-15] MEDS: MELATONIN 5 MG TABLET PO SCH (21:00)
[2020-12-16 01:52] VITALS: BP 100/61
[2020-12-16] MEDS: HEPARIN 5,000 UNITS/ML, 1ML SQ SCH ×3 (05:58→21:00)
[2020-12-16] MEDS: CARVEDILOL 3.125 MG TABLET PO SCH ×2 (05:58→17:56)
[2020-12-16] MEDS: INSULIN LISPRO 100 UNITS/ML, PEN SQ-INSULIN SCH ×4 (07:00→21:01)
[2020-12-16] MEDS ORDERED: HYDROcodone/APAP 5/325 TABLET ONE ×3 (07:50→16:52)
[2020-12-16 07:55] VITALS: BP 109/70
[2020-12-16] MEDS: MUPIROCIN OINT 2%, 22GM TP SCH ×3 (08:09→21:01)
[2020-12-16] MEDS: METHADONE 10 MG TABLET PO SCH (08:11)
[2020-12-16] MEDS: FUROSEMIDE 80 MG TABLET PO SCH ×2 (08:11→16:14)
[2020-12-16] MEDS: SENNA/DOCUSATE TABLET PO SCH (08:11)
[2020-12-16] MEDS: LISINOPRIL 5 MG TABLET PO SCH (08:12)
[2020-12-16] MEDS: LIOTHYRONINE 5 MCG TABLET PO SCH (08:12)
[2020-12-16 13:15] VITALS: BP 109/70
[2020-12-16 19:55] VITALS: BP 109/70
[2020-12-16] MEDS: MELATONIN 5 MG TABLET PO SCH (21:00)
[2020-12-17 02:21] VITALS: BP 102/66
[2020-12-17] MEDS: HEPARIN 5,000 UNITS/ML, 1ML SQ SCH ×3 (05:17→20:56)
[2020-12-17] MEDS: CARVEDILOL 3.125 MG TABLET PO SCH ×2 (05:17→18:17)
[2020-12-17 07:47] LABS: ALBUMIN 1.7 g/dL (3.4-5.0); CALCIUM 7.8 mg/dL (8.5-10.1)
[2020-12-17 07:50] LABS: CREATININE 1.35 mg/dL (0.7-1.3)
[2020-12-17 07:53] LABS: ANION GAP 3 mmol/L (5-15); CHLORIDE 102 mmol/L (98-107)
[2020-12-17] MEDS: LISINOPRIL 5 MG TABLET PO SCH (09:00)
[2020-12-17] MEDS: MUPIROCIN OINT 2%, 22GM TP SCH ×3 (09:00→20:58)
[2020-12-17] MEDS: SENNA/DOCUSATE TABLET PO SCH (09:00)
[2020-12-17] MEDS: LIOTHYRONINE 5 MCG TABLET PO SCH ×2 (09:00→09:23)
[2020-12-17] MEDS: INSULIN LISPRO 100 UNITS/ML, PEN SQ-INSULIN SCH ×4 (09:22→20:58)
[2020-12-17 09:23] VITALS: BP 108/71
[2020-12-17] MEDS: METHADONE 10 MG TABLET PO SCH (09:27)
[2020-12-17] MEDS: FUROSEMIDE 80 MG TABLET PO SCH ×2 (09:28→18:16)
[2020-12-17 13:54] VITALS: BP 126/75
[2020-12-17] MEDS ORDERED: LIDOCAINE 1%, 20ML ONE (15:12)
[2020-12-17] MEDS ORDERED: FENTANYL PF 100 MCG/2ML ONE (15:24)
[2020-12-17] MEDS ORDERED: NALOXONE 1 MG/ML, 2ML ONE (15:24)
[2020-12-17] MEDS ORDERED: LIDOCAINE 1%, 10ML ONE (16:02)
[2020-12-17 17:14] VITALS: BP 113/76
[2020-12-17 20:23] VITALS: BP 111/71
[2020-12-17] MEDS: MELATONIN 5 MG TABLET PO SCH (20:56)
[2020-12-18 00:14] VITALS: BP 120/80
[2020-12-18] MEDS: HEPARIN 5,000 UNITS/ML, 1ML SQ SCH ×3 (05:04→20:13)
[2020-12-18] MEDS: CARVEDILOL 3.125 MG TABLET PO SCH ×2 (05:05→16:32)
[2020-12-18 08:23] VITALS: BP 107/62
[2020-12-18] MEDS: LISINOPRIL 5 MG TABLET PO SCH (08:28)
[2020-12-18] MEDS: INSULIN LISPRO 100 UNITS/ML, PEN SQ-INSULIN SCH ×4 (08:28→20:13)
[2020-12-18] MEDS: METHADONE 10 MG TABLET PO SCH (08:28)
[2020-12-18] MEDS: LIOTHYRONINE 5 MCG TABLET PO SCH ×2 (08:29→08:31)
[2020-12-18] MEDS: SENNA/DOCUSATE TABLET PO SCH ×2 (08:29→08:31)
[2020-12-18] MEDS: FUROSEMIDE 80 MG TABLET PO SCH ×2 (08:29→16:31)
[2020-12-18] MEDS: MUPIROCIN OINT 2%, 22GM TP SCH ×3 (09:00→20:14)
[2020-12-18 09:39] LABS: BASOPHILS % (AUTO) 1 % (0-1); EOSINOPHILS % (AUTO) 2 % (1-7); LYMPHOCYTES % (AUTO) 19 % (22-44); MEAN CORPUSCULAR HEMOGLOBIN 25.7 pg (27.5-34.5); MEAN CORPUSCULAR HGB CONC 31.5 g/dL (33.2-36.2); MEAN PLATELET VOLUME 6.8 fL (7.4-10.4); MONOCYTES % (AUTO) 10 % (2-9); NEUTROPHILS % (AUTO) 68 % (42-75); PLATELET COUNT 204 x10^3/uL (130-400); RED BLOOD COUNT 3.94 x10^6/uL (4.38-5.82); RED CELL DISTRIBUTION WIDTH 21.4 % (9.4-14.8)
[2020-12-18 09:47] LABS: ALANINE AMINOTRANSFERASE 15 U/L (12-78); ALBUMIN 1.6 g/dL (3.4-5.0); ANION GAP 3 mmol/L (5-15); CALCIUM 7.6 mg/dL (8.5-10.1); CHLORIDE 101 mmol/L (98-107); CREATININE 0.89 mg/dL (0.7-1.3)
[2020-12-18 09:49] LABS: ALKALINE PHOSPHATASE 71 U/L (45-117); BILIRUBIN,TOTAL 0.2 mg/dL (0.2-1.0); TOTAL PROTEIN 6.4 g/dL (6.4-8.2)
[2020-12-18 12:29] VITALS: BP 110/60
[2020-12-18 16:30] VITALS: BP 107/70
[2020-12-18] MEDS ORDERED: HYDROcodone/APAP 5/325 TABLET ONE (18:10)
[2020-12-18] MEDS ORDERED: HYDROcodone/APAP 10/325 MG TABLET ONE (18:10)
[2020-12-18 20:03] VITALS: BP 106/62
[2020-12-18] MEDS: MELATONIN 5 MG TABLET PO SCH (20:12)
[2020-12-19 00:06] VITALS: BP 103/61
[2020-12-19] MEDS: HEPARIN 5,000 UNITS/ML, 1ML SQ SCH ×3 (05:11→20:56)
[2020-12-19 05:15] VITALS: BP 117/71
[2020-12-19] MEDS: CARVEDILOL 3.125 MG TABLET PO SCH ×2 (05:15→17:34)
[2020-12-19 06:06] LABS: ANION GAP 2 mmol/L (5-15); CALCIUM 7.8 mg/dL (8.5-10.1); CHLORIDE 98 mmol/L (98-107); CREATININE 0.74 mg/dL (0.7-1.3)
[2020-12-19] MEDS: INSULIN LISPRO 100 UNITS/ML, PEN SQ-INSULIN SCH ×4 (07:00→20:56)
[2020-12-19 07:18] VITALS: BP 104/68
[2020-12-19] MEDS: LIOTHYRONINE 5 MCG TABLET PO SCH (08:44)
[2020-12-19] MEDS: METHADONE 10 MG TABLET PO SCH (08:44)
[2020-12-19] MEDS: LISINOPRIL 5 MG TABLET PO SCH (08:45)
[2020-12-19] MEDS: MUPIROCIN OINT 2%, 22GM TP SCH ×3 (08:45→21:00)
[2020-12-19] MEDS: FUROSEMIDE 80 MG TABLET PO SCH ×2 (08:45→17:34)
[2020-12-19] MEDS: SENNA/DOCUSATE TABLET PO SCH (08:55)
[2020-12-19 12:35] VITALS: BP 104/66
[2020-12-19 17:22] VITALS: BP 103/53
[2020-12-19 19:24] VITALS: BP 100/61
[2020-12-19] MEDS: MELATONIN 5 MG TABLET PO SCH (20:56)
[2020-12-19] MEDS ORDERED: HYDROcodone/APAP 10/325 MG TABLET ONE (23:35)
[2020-12-20 01:04] VITALS: BP 114/71
[2020-12-20] MEDS: CARVEDILOL 3.125 MG TABLET PO SCH ×2 (05:53→17:39)
[2020-12-20] MEDS: HEPARIN 5,000 UNITS/ML, 1ML SQ SCH ×3 (05:53→20:34)
[2020-12-20 08:00] VITALS: BP 107/66
[2020-12-20] MEDS: INSULIN LISPRO 100 UNITS/ML, PEN SQ-INSULIN SCH ×4 (08:11→20:37)
[2020-12-20] MEDS: LIOTHYRONINE 5 MCG TABLET PO SCH (08:12)
[2020-12-20] MEDS: METHADONE 10 MG TABLET PO SCH (08:12)
[2020-12-20] MEDS: SENNA/DOCUSATE TABLET PO SCH (08:12)
[2020-12-20] MEDS: LISINOPRIL 5 MG TABLET PO SCH (08:13)
[2020-12-20] MEDS: FUROSEMIDE 80 MG TABLET PO SCH ×2 (08:13→16:04)
[2020-12-20] MEDS ORDERED: LISI5TAB7 PO (09:14)
[2020-12-20] MEDS ORDERED: CARV3.1212 PO (09:14)
[2020-12-20] MEDS ORDERED: ATOR40TA78 PO (09:14)
[2020-12-20] MEDS ORDERED: FURO80TA3 PO (09:14)
[2020-12-20] MEDS: MUPIROCIN OINT 2%, 22GM TP SCH ×3 (11:32→21:00)
[2020-12-20 12:00] VITALS: BP 114/77
[2020-12-20 18:55] VITALS: BP 100/69
[2020-12-20] MEDS: MELATONIN 5 MG TABLET PO SCH (20:34)
[2020-12-21 00:18] VITALS: BP 101/68
[2020-12-21] MEDS: HEPARIN 5,000 UNITS/ML, 1ML SQ SCH ×2 (05:00→14:26)
[2020-12-21] MEDS: CARVEDILOL 3.125 MG TABLET PO SCH ×2 (06:00→17:36)
[2020-12-21] MEDS: INSULIN LISPRO 100 UNITS/ML, PEN SQ-INSULIN SCH ×3 (07:02→16:00)
[2020-12-21 08:46] VITALS: BP 115/76
[2020-12-21] MEDS: LIOTHYRONINE 5 MCG TABLET PO SCH (08:57)
[2020-12-21] MEDS: SENNA/DOCUSATE TABLET PO SCH (08:57)
[2020-12-21] MEDS: METHADONE 10 MG TABLET PO SCH (08:57)
[2020-12-21] MEDS: LISINOPRIL 5 MG TABLET PO SCH (08:57)
[2020-12-21] MEDS: FUROSEMIDE 80 MG TABLET PO SCH ×2 (08:58→17:35)
[2020-12-21] MEDS: MUPIROCIN OINT 2%, 22GM TP SCH ×2 (08:59→16:00)
[2020-12-21 13:19] VITALS: BP 112/74
== END 2020-12-21 21:26 | disposition home or self-care (01) | DRG 194 ==
LOC: ED 06:37 → EDIP 11:45 → 4WST 15:46
PROVIDERS: ADMIT Internal Medicine; ATTEND Family Medicine
PROC: 0W9B3ZZ Drainage of Left Pleural Cavity, Percutaneous Approach (ICD-10-PCS; principal; 2020-12-14)
PROC: 0W9B30Z Drainage of Left Pleural Cavity with Drainage Device, Percutaneous Approach (ICD-10-PCS; 2020-12-17)
DX: I11.0 Hypertensive heart disease with heart failure (principal); J96.11 Chronic respiratory failure with hypoxia; J91.8 Pleural effusion in other conditions classified elsewhere; E44.0 Moderate protein-calorie malnutrition; E11.649 Type 2 diabetes mellitus with hypoglycemia without coma; D64.9 Anemia, unspecified; E11.65 Type 2 diabetes mellitus with hyperglycemia; I42.9 Cardiomyopathy, unspecified; B18.2 Chronic viral hepatitis C; E87.5 Hyperkalemia; I50.43 Acute on chronic combined systolic (congestive) and diastolic (congestive) heart failure; J44.9 Chronic obstructive pulmonary disease, unspecified; I87.2 Venous insufficiency (chronic) (peripheral); Z66 Do not resuscitate; N49.2 Inflammatory disorders of scrotum; E11.69 Type 2 diabetes mellitus with other specified complication; Z51.5 Encounter for palliative care; F11.20 Opioid dependence, uncomplicated; M86.679 Other chronic osteomyelitis, unspecified ankle and foot; Z91.19 Patient's noncompliance with other medical treatment and regimen; Z86.711 Personal history of pulmonary embolism; Z68.33 Body mass index [BMI] 33.0-33.9, adult; Z20.822 Contact with and (suspected) exposure to COVID-19
CPT/HCPCS: 32555; 36415; 99285; J3490; 32550; 71045; 80048; 80053; 80069; 82962; 83735; 83880; 84439; 84481; 85025; 93005; G0378; J1644; J1940; J3010; C1729; J1815; J2310